=== PATIENT | female | born 1985 | race Hispanic/Latino ===

== ENCOUNTER 2019-07-14 08:59 | Emergency (ER) | payer SELFPAY ==
[~2019-07-14] VITALS: Ht 165.1 cm; Wt 81.6 kg
--- OUTSIDE RECORDS SUMMARY | 2019-07-14 09:02 | XMS REPORT ---
[facility] Address Unknown Phone Unavailable Care Team Providers Care Telephone Coin Box Collector Name Role Phone Unavailable Unavailable Payers Payer Name Policy Type Policy Number Effective Date Expiration Date Problems This patient has no known problems. Allergies, Adverse Reactions, Alerts Allergy Name Allergy Type Status Severity Reaction(s) Onset Date Inactive Date Treating Clinician Comments No Known Allergies DA Active U 2019-01-05 00:00:00 No Known Allergies DA Active U 2013-08-28 00:00:00 Medications This patient has no known medications. Results Test Description Test Time Test Comments Text Results Atomic Results Result Comments - US ABDOMEN LTD 2019-01-05 09:55:00 Name: BECCA QUESADA [facility] : 1985 Age/S: 33 / F Aravind [facility] Unit #: [id number] Loc: [place] [address] Phys: Roya Vu NP Acct: [id number] Dis Date: Status: REG ER PHONE #: [phone] Exam Date: 01/05/2019927 FAX #: [phone] Reason: RUQ AND R FLANK PAIN EXAMS: CPT CODE: [id number] US ABDOMEN LTD [id number] REASON FOR EXAM: RUQ AND R FLANK PAIN EXAM ORDER DATE: 01/05/2019 8:52 AM Attending MMarvin: Roya Vu NP PROCEDURE: - US ABDOMEN LTD Technique: Grayscale and color Doppler images of the right-upper quadrant of the abdomen. Comparison: CT abdomen and pelvis November 2012 FINDINGS: Aorta and IVC: Patent and grossly normal in caliber. Liver: Size: 15.6 cm craniocaudally Parenchyma and contour: Hyperechoic nodule in the inferior margin of the right lobe of the liver measuring 1.8 x 1.5 x 1.6 cm in size Cysts and/or masses: None. Intrahepatic bile ducts: No intrahepatic biliary ductal dilation Common bile duct: 4.3 mm in diameter. No echogenic filling defects in visualized duct. Gallbladder: Stones/sludge: No intraluminal stones or sludge. Wall: 2.7 mm in thickness. No discontinuity. No polyps. No pericholecystic fluid. No hyperemia. Sonographic Saunders's sign: Negative Portal vein: Portal vein caliber is within normal limits. Portal vein is patent with hepatopetal flow. Pancreas: Incompletely visualized. However the visualized portions are grossly within normal limits. Right kidney: parenchyma echogenicity: Normal echogenicity size: 11.0 x 4.8 x 5.0 cm stones: 6 mm stone in the inferior pole PAGE 1 Signed Report (CONTINUED) Name: BECCA QUESADA [facility] : 1985 Age/S: 33 / F [address] [facility] Unit #: [id number] Loc: [place] [address] Phys: Roya Vu NP Acct: [id number] Dis Date: Status: REG ER PHONE #: [phone] Exam Date: 01/05/2019927 FAX #: [phone] Reason: RUQ AND R FLANK PAIN EXAMS: CPT CODE: [id number] ABDOMEN [facility] [address] <Continued> cysts/masses: none hydronephrosis: none Ascites/pleural effusions: None IMPRESSION: Nonobstructing right-sided renal stone. Hyperechoic hepatic lesion in the right lobe. This can be further evaluated with a nonemergent contrast-enhanced cross-sectional study of the liver suggest CT or MRI. at 0955 Reported and signed by: Dm Mcpherson MD CC: Kevin Conrad MD; Rachell Mclaughlin MD; Roya Vu NP Technologist: ALTHEA ALOCCER Trnidb Date/Time: 01/05/2019 (0955) [email or web address] Orig Print D/T: S: 01/05/2019 (2445) Probe: PAGE 2 Signed Report URINALYSIS COMPLETE 2019-01-05 08:47:00 UA COLOR (test code=COLU) YELLOW YELLOW UA APPEARANCE (test code=APPU) Cloudy CLEAR UA GLUCOSE DIPSTICK (test code=DGLUU) NEGATIVE mg/dL NEGATIVE UA BILIRUBIN DIPSTICK (test code=BILU) NEGATIVE mg/dL NEGATIVE UA KETONE DIPSTICK (test code=KETU) NEGATIVE mg/dL NEGATIVE UA SPECIFIC GRAVITY (test code=SGU) 1.027 1.001-1.035 UA BLOOD DIPSTICK (test code=JARVIS) Negative mg/dL NEGATIVE UA PH DIPSTICK (test code=WILFRIDO) 7.0 5.0-8.0 UA PROTEIN DIPSTICK (test code=PROU) 20 (Trace) mg/dL NEGATIVE UA UROBILINIOGEN DIPSTICK (test code=URO) Normal mg/dL NEGATIVE UA NITRITE DIPSTICK (test code=RADHA) NEGATIVE NEGATIVE UA LEUKOCYTE ESTERASE W REFLEX (test code=LEUUR) NEGATIVE Rekha/uL NEGATIVE UA WBC (test code=WBCU) 6-10 per HPF 0-5 UA RBC (test code=RBCU) 0-2 #/HPF 0-5 UA EPITHELIAL CELLS (test code=EPIU) MOD per HPF FEW UA BACTERIA (test code=BACU) FEW #/HPF NONE UA RENAL CELLS (test code=JIM) 0-2 #/HPF 0-5 UA MUCUS (test code=MUCU) FEW #/LPF FEW UA AMORPHOUS SEDIMENT (test code=AMORU) FEW #/LPF NONE Urine Source? Clean CatchBASIC METABOLIC [id number] 08:47:00* Test Item Value Reference Range Comments SODIUM (test code=NA) 141 mmol/L 136-145 POTASSIUM (test code=K) 3.8 mmol/L 3.5-5.1 CHLORIDE (test code=CL) 107.0 mmol/L 98-107 CARBON DIOXIDE (test code=CO2) 27.0 mmol/L 21-32 ANION GAP (test code=GAP) 10.8 10-20 GLUCOSE (test code=GLU) 102 mg/dL 74-106 BLOOD UREA NITROGEN (test code=BUN) 12 mg/dL 7-18 GLOMERULAR FILTRATION RATE (test code=GFR) > 60 mL/min >=60 Estimated GFR by using Modified MDRD formula.Chronic kidney disease is defined as either kidney damageor GFR <60 mL/min/1.73 m2 for >3 months. CREATININE (test code=CREAT) 0.90 mg/dL 0.55-1.02 Note change in reference range due to change in reagent. BUN/CREATININE RATIO (test code=BUN/CREA) 13.0 10-20 CALCIUM (test code=CA) 9.2 mg/dL 8.5-10.1 HEPATIC FUNCTION [id number] 08:47:00* Test Item Value Reference Range Comments TOTAL PROTEIN (test code=PROT) 7.6 gram/dL 6.4-8.2 ALBUMIN (test code=ALB) 3.9 g/dL 3.4-5.0 GLOBULIN (test code=GLOB) 3.7 gram/dL 2.7-4.2 ALBUMIN/GLOBULIN RATIO (test code=A/G) 1.1 0.75-1.50 BILIRUBIN TOTAL (test code=BILT) 0.50 mg/dL 0.0-1.0 BILIRUBIN DIRECT (test code=BILD) 0.13 mg/dL 0.0-0.20 SGOT/AST (test code=AST) 11 IUnit/L 15-37 SGPT/ALT (test code=ALT) 17 IUnit/L 12-78 ALKALINE PHOSPHATASE TOTAL (test code=ALKP) 123 IUnit/L 45-117 Note change in reference range due to change in reagent. [id number] 08:47:00* Test Item Value Reference Range Comments LIPASE (test code=LIP) 96 U/L 73.0-393.0 HCG SERUM [id number] 08:47:00* Test Item Value Reference Range Comments HCG SERUM QUAL (test code=HCGQL) NEGATIVE NEGATIVE This HCGQL test is NOT applicable for MALE patients.Check with nurse about probable order error.If Tumor Marker Test needed, nurse should order test "HCGTU"(Test #550.50169) BASIC METABOLIC [id number] 08:38:00* Test Item Value Reference Range Comments SODIUM (test code=NA) 141 mmol/L 136-145 POTASSIUM (test code=K) 3.8 mmol/L 3.5-5.1 CHLORIDE (test code=CL) 107.0 mmol/L 98-107 CARBON DIOXIDE (test code=CO2) mmol/L 21-32 ANION GAP (test code=GAP) 10-20 GLUCOSE (test code=GLU) mg/dL 74-106 BLOOD UREA NITROGEN (test code=BUN) mg/dL 7-18 GLOMERULAR FILTRATION RATE (test code=GFR) mL/min >=60 CREATININE (test code=CREAT) mg/dL 0.55-1.02 BUN/CREATININE RATIO (test code=BUN/CREA) 10-20 CALCIUM (test code=CA) mg/dL 8.5-10.1 HEPATIC FUNCTION [id number] 08:38:00* Test Item Value Reference Range Comments TOTAL PROTEIN (test code=PROT) gram/dL 6.4-8.2 ALBUMIN (test code=ALB) g/dL 3.4-5.0 GLOBULIN (test code=GLOB) gram/dL 2.7-4.2 ALBUMIN/GLOBULIN RATIO (test code=A/G) 0.75-1.50 BILIRUBIN TOTAL (test code=BILT) mg/dL 0.0-1.0 BILIRUBIN DIRECT (test code=BILD) mg/dL 0.0-0.20 SGOT/AST (test code=AST) IUnit/L 15-37 SGPT/ALT (test code=ALT) IUnit/L 12-78 ALKALINE PHOSPHATASE TOTAL (test code=ALKP) IUnit/L 45-117 [id number] 08:38:00* Test Item Value Reference Range Comments LIPASE (test code=LIP) U/L 73.0-393.0 HCG SERUM [id number] 08:38:00* Test Item Value Reference Range Comments HCG SERUM QUAL (test code=HCGQL) NEGATIVE NEGATIVE This HCGQL test is NOT applicable for MALE patients.Check with nurse about probable order error.If Tumor Marker Test needed, nurse should order test "HCGTU"(Test #550.55435) BASIC METABOLIC [id number] 08:37:00* Test Item Value Reference Range Comments SODIUM (test code=NA) mmol/L 136-145 POTASSIUM (test code=K) mmol/L 3.5-5.1 CHLORIDE (test code=CL) mmol/L 98-107 CARBON DIOXIDE (test code=CO2) mmol/L 21-32 ANION GAP (test code=GAP) 10-20 GLUCOSE (test code=GLU) mg/dL 74-106 BLOOD UREA NITROGEN (test code=BUN) mg/dL 7-18 GLOMERULAR FILTRATION RATE (test code=GFR) mL/min >=60 CREATININE (test code=CREAT) mg/dL 0.55-1.02 BUN/CREATININE RATIO (test code=BUN/CREA) 10-20 CALCIUM (test code=CA) mg/dL 8.5-10.1 HEPATIC FUNCTION [id number] 08:37:00* Test Item Value Reference Range Comments TOTAL PROTEIN (test code=PROT) gram/dL 6.4-8.2 ALBUMIN (test code=ALB) g/dL 3.4-5.0 GLOBULIN (test code=GLOB) gram/dL 2.7-4.2 ALBUMIN/GLOBULIN RATIO (test code=A/G) 0.75-1.50 BILIRUBIN TOTAL (test code=BILT) mg/dL 0.0-1.0 BILIRUBIN DIRECT (test code=BILD) mg/dL 0.0-0.20 SGOT/AST (test code=AST) IUnit/L 15-37 SGPT/ALT (test code=ALT) IUnit/L 12-78 ALKALINE PHOSPHATASE TOTAL (test code=ALKP) IUnit/L 45-117 [id number] 08:37:00* Test Item Value Reference Range Comments LIPASE (test code=LIP) U/L 73.0-393.0 HCG SERUM [id number] 08:37:00* Test Item Value Reference Range Comments HCG SERUM QUAL (test code=HCGQL) NEGATIVE NEGATIVE This HCGQL test is NOT applicable for MALE patients.Check with nurse about probable order error.If Tumor Marker Test needed, nurse should order test "HCGTU"(Test #550.07376) CBC W/O [id number] 08:30:00* Test Item Value Reference Range Comments WHITE BLOOD CELL (test code=WBC) 17.3 K/mm3 4.5-12.5 RED BLOOD CELL (test code=RBC) 4.78 mill/mm3 3.7-5.2 HEMOGLOBIN (test code=HGB) 13.9 gram/dL 11.5-15.5 HEMATOCRIT (test code=HCT) 41.8 % 36.0-46.0 MEAN CELL VOLUME (test code=MCV) 87.4 fL 80-98 MEAN CELL HGB (test code=MCH) 29.1 picogram 27.0-33.0 MEAN CELL HGB CONCETRATION (test code=MCHC) 33.3 gram/dL 33.0-36.0 RED CELL DISTRIBUTION WIDTH (test code=RDW) 14.3 % 11.6-16.2 PLATELET COUNT (test code=PLT) 268 K/mm3 150-450 MEAN PLATELET VOLUME (test code=MPV) 11.6 fL 6.7-11.0 CBC W/O [id number] 08:24:00* Test Item Value Reference Range Comments WHITE BLOOD CELL (test code=WBC) K/mm3 4.5-12.5 RED BLOOD CELL (test code=RBC) mill/mm3 3.7-5.2 HEMOGLOBIN (test code=HGB) 13.9 gram/dL 11.5-15.5 HEMATOCRIT (test code=HCT) 41.8 % 36.0-46.0 MEAN CELL VOLUME (test code=MCV) fL 80-98 MEAN CELL HGB (test code=MCH) picogram 27.0-33.0 MEAN CELL HGB CONCETRATION (test code=MCHC) gram/dL 33.0-36.0 RED CELL DISTRIBUTION WIDTH (test code=RDW) % 11.6-16.2 PLATELET COUNT (test code=PLT) K/mm3 150-450 MEAN PLATELET VOLUME (test code=MPV) fL 6.7-11.0
[2019-07-14 09:46] LABS: STREPTOCOCCUS GRP A ANTIGEN NEGATIVE (NEGATIVE)
[2019-07-14 09:54] LABS: INFLUENZAE A&B ANTIGEN (RAPID) NEGATIVE (NEGATIVE)
== END 2019-07-14 10:07 | disposition home or self-care (01) ==
LOC: ER 08:59
DX: R50.9 Fever, unspecified (principal); R05 Cough; J02.9 Acute pharyngitis, unspecified
CPT/HCPCS: 83518; 87070; 87400; 99283

== ENCOUNTER 2019-12-26 04:24 | Observation (INO) | payer OTHER ==
[~2019-12-26] VITALS: Ht 165.1 cm; Wt 85.7 kg
[2019-12-26] MEDS ORDERED: KETOROLAC TROMETHAMINE 30 MG/ML VIAL IV STA (04:31)
[2019-12-26] MEDS ORDERED: ONDANSETRON HCL INJ 2MG/ML 2ML 2 MG/ML VIAL IV STA (04:31)
--- NOTE | 2019-12-26 04:31 | Emergency Department Note ---
History of Present Illnes History of Present Illness History of Present Illness This is a 34 year old female with R flank pain to RLQ since yesterday . Onset (how long ago): day(s) Radiation: Reports abdomen, Reports flank (R) Severity: moderate Onset quality: sudden Duration (how long): day(s) Timing of current episode: constant Progression: worsening Chronicity: new Context: Reports recent illness Relieving factors: none Associated symptoms: Reports fever/chills, Reports nausea/vomiting Treatments prior to arrival: none Past Medical/Family History Physician Review I have reviewed the patient's past medical and family history. Any updates have been documented here. Past Medical History Recent Fever: No Clinical Suspicion of Infectio: No New/Unexplained Change in Ment: No Past Medical History: None, Kidney Stones Past Surgical History: Other Surgery: kidney surgery for stones Social History Smoking Cessation: Current every day smoker Counseling Performed: Yes Alcohol Use: None Any Illegal Drug Use: Yes (Marijuana) Other Last Tetanus: unknown Review of Systems Review of Systems Constitutional: Reports chills EENTM: Reports no symptoms Cardiovascular: Reports no symptoms Respiratory: Reports no symptoms Gastrointestinal: Reports nausea Genitourinary: Reports no symptoms Musculoskeletal: Reports no symptoms Integumentary: Reports no symptoms Neurological: Reports no symptoms Psychological: Reports no symptoms Endocrine: Reports no symptoms Hematological/Lymphatic: Reports no symptoms Physical Exam Related Data Allergies: Coded Allergies: No Known Allergies (Unverified , 07/14/19) Vital signs reviewed: Yes Physical Exam CONSTITUTIONAL Constitutional: Present well-developed, Present well-nourished HENT HENT: Present normocephalic, Present atraumatic, Present oropharynx clear/moist, Present nose normal HENT L/R: Present left ext ear normal, Present right ext ear normal EYES Eyes: Reports PERRL, Reports conjunctivae normal NECK Neck: Present ROM normal PULMONARY Pulmonary: Present effort normal, Present breath sounds normal CARDIOVASCULAR Cardiovascular: Present regular rhythm, Present heart sounds normal, Present capillary refill normal, Present normal rate GASTROINTESTINAL Abdominal: Present soft, Present bowel sounds normal, Present tender (RLQ) GENITOURINARY Genitourinary: Present exam deferred SKIN Skin: Present warm, Present dry MUSCULOSKELETAL Musculoskeletal: Present ROM normal NEUROLOGICAL Neurological: Present alert, Present oriented x 3, Present no gross motor or sensory deficits PSYCHOLOGICAL Psychological: Present mood/affect normal, Present judgement normal Results Laboratory Lab results reviewed: Yes Laboratory comments markedly elevated WBC Imaging Imaging results reviewed: Yes Impressions [place] [id number] [place] [address] Patient Name: BECCA QUESADA MR #: [id number] : 1985 Age/Sex: 34/F Req #: [id number] [facility] Physician: REID BUTLER MD Ordered by: JUAN STEPHEN DO Report #: [id number] Location: [facility] Room/Bed: [place] [address] Procedure: [id number] CT/CT ABDOMEN/PELVIS W Exam Date: 12/26/19 Exam Time: 514 REPORT STATUS: Signed EXAM: CT Abdomen and Pelvis WITH contrast INDICATION: ^RLQ pain ^[id number] ^514 COMPARISON: None. TECHNIQUE: Abdomen and pelvis were scanned utilizing a multidetector helical scanner from the lung base to the pubic symphysis after administration of IV contrast. Coronal and sagittal reformations were obtained. Dose modulation, iterative reconstruction, and/or weight based adjustment of the mA/kV was utilized to reduce the radiation dose to as low as reasonably achievable. Routine protocol was performed. Scan was performed when during portal venous phase. IV CONTRAST: 100 mL of Isovue-370 ORAL CONTRAST: None COMPLICATIONS: None RADIATION DOSE: Total DLP: 598.67 mGy*cm Estimated effective dose: (DLP x 0.015 x size factor) mSv CTDIvol has been reviewed. It is below the limits set by the Radiation Protocol Committee (RPC). FINDINGS: LINES and TUBES: None. LOWER THORAX: Unremarkable HEPATOBILIARY: 1.9 cm hypodensity adjacent to the falciform ligament, could represent fat deposition versus a cyst. No biliary ductal dilation. GALLBLADDER: No radio-opaque stones or sludge. No wall thickening. SPLEEN: No splenomegaly. PANCREAS: No focal masses or ductal dilatation. ADRENALS: No adrenal nodules KIDNEYS/URETERS: Kidneys enhance symmetrically. Multifocal bilateral cortical scarring, left greater right. Focal area of right inferior pole cortical hypoenhancement with adjacent mild fat stranding (series 2, image 41). No hydronephrosis. No renal mass. No stones. GI TRACT: No abnormal distention, wall thickening, or evidence of bowel obstruction. Distended appendix up to 1.5 cm with mild surrounding fat stranding. PELVIC ORGANS/BLADDER: Bladder is under distended, demonstrating wall thickening. Vaginal tampon in place. LYMPH NODES: No lymphadenopathy. VESSELS: Unremarkable. PERITONEUM / RETROPERITONEUM: No free air. Small amount of complex pelvic free fluid. BONES: Unremarkable. SOFT TISSUES: Unremarkable. IMPRESSION: 1. Acute appendicitis. No evidence of perforation or abscess formation. 2. Small focal area of right renal cortical hypoenhancement, could represent mild pyelonephritis in the appropriate clinical context. 3. Significant multifocal left renal cortical scarring Dr. Dyer was notified at 6:10 AM, on 12/26/2019. Signed by: Dr. Cornelio Dye MD on 12/26/2019 6:12 AM Dictated By: CORNELIO DYE MD 1 Transcribed By: JAG on 12/26/19611 COPY TO: JUAN STEPHEN DO~ Assessment & Plan Medical Decision Making MDM Diff Dx : ovarian cyst, appendicitis, kidney stone, hernia Assessment & Plan Final Impression: (1) Pyelonephritis (2) Appendicitis Depart Disposition: ADMITTED Home Meds Reported Medications Acetaminophen/Codeine* (TYLENOL # 3*) 1 Ea Tab, MG PO Q4HR, #30 12/27/19 Ibuprofen (IBUPROFEN) 400 Mg Tablet, 800 MG PO Q6H PRN for MODERATE PAIN (4-6), TAB 12/26/19 Naproxen (NAPROXEN) 250 Mg Tablet, 250 MG PO Q4H PRN for Mild Pain (1-3) or Fever>100.8, TAB 12/26/19 JUAN STEPHEN DO Dec 26, 2019 04:31
--- OUTSIDE RECORDS SUMMARY | 2019-12-26 04:35 | XMS REPORT | Continuity of Care Document ---
Author Author [facility] t Organization [facility] Address [address] [place] [address] Phone Unavailable Care Team Providers Care Sld Teacher Name Role Phone NO, PCP PCP Unavailable Payers Payer Name Policy Type Policy Number Effective Date Expiration Date S ource Problems This patient has no known problems. Allergies, Adverse Reactions, Alerts Allergy Name Allergy Type Status Severity Reaction(s) Onset Date Inacti ve Date Treating Clinician Comments Source No Known Allergies DA Active U 2019-01-05 00:00:00 [facility] No Known Allergies DA Active U 2013-08-28 00:00:00 [facility] Medications This patient has no known medications. Procedures This patient has no known procedures. Encounters Start Date/Time End Date/Time [facility]counter [facility] ID Source 2019-07-14 08:59:00 2019-07-14 10:07:00 Departed Emergency Room [facility] [id number] [facility] Results Test Description Test Time Test Comments Results Result Comments Source Influenza Virus Types A,B Antigen 2019-07-14 09:54:00 Test Item Influenza Virus Types A,B Antigen (test code = 96376-2) [facility] [id number] 09:46:00* Test Item Value Reference Range Interpretation Comments Group A Streptococcus Screen (test code = 60815-0) NEGATIVE NEG ATIVE [facility]- US ABDOMEN [id number] 09:55:00 Name: MICAH QUESADAIE [facility] : 1985 Age/S: 33 / F [address] Unit #: [id number] Loc: GORAN Weber [address] Phys: Lee Vu [employer] Acct: [id number] Di s Date: Status: REG ER PHONE #: Exam Date: 01/05/2019927 FAX #: [phone] Reason: RUQ AND R FLANK PAIN EXAMS: CPT CODE: [id number] US ABDOMEN LTD 44263 REASON FOR EXAM: RUQ AND R FLANK PAIN EXAM ORDER DATE: 01/05/2019 8:52 AM Attending Timmy: Roya Vu NP PROCEDURE: - US AB DOMEN LTD Technique: Grayscale and color Doppler images of the rig ht-upper quadrant of the abdomen. Comparison: CT abdomen and pelvis November 2012 FINDINGS: Aorta and IVC: Patent and grossly normal in caliber. Liver: Size: 15.6 cm cranio caudally Parenchyma and contour: Hyperechoic nodule in the inferior margin of the right lobe of the liver measuring 1.8 x 1.5 x 1.6 cm in size Cysts and/or masses: None. Intrahepatic bile ducts: No intrahepat ic biliary ductal dilation Common bile duct: 4.3 mm in diameter. No echogenic filling defects in visualized duct. Gallbladder : Stones/sludge: No intraluminal stones or sludge. Wall: 2.7 mm in thickness. No discontinuity. No polyps. No pericholecystic fluid. No h yperemia. Sonographic Saunders's sign: Negative Portal vein: P ortal vein caliber is within normal limits. Portal vein is patent with he patopetal flow. Pancreas: Incompletely visualized. However the vis ualized portions are grossly within normal limits. Right kid kennedy: parenchyma echogenicity: Normal echogenicity size: 11.0 x 4.8 x 5.0 cm stones: 6 mm stone in the inferior pole PAGE 1 Signed Report (CONTINUED) Name: BECCA QUESADA [facility] : 1985 Age/S: 33 / F [address] Unit #: [id number] Loc: GORAN Weber [address] Phys: Roya Vu NP Acct: [id number] Dis Date: Status: REG ER PHONE #: [phone] Exam Date: 01/05/2019927 FAX #: [phone] Reason: RUQ AND R FLANK PAIN EXAMS: CPT CODE: [id number] US ABDOMEN LTD 54153 <Continued> cysts/masses: none hydronephrosis: none Ascites/pleural effusions: None IMPRESSION: Nonobstructing right-sided renal stone. Hyperechoic hepatic lesion in the right lobe. This can be further evaluated with a nonemergent contrast-enhanced cross-sectional study of the liver suggest CT or MRI. at 0955 Reported and signed by: Dm Mcpherson MD CC: Kevin Conrad MD; Rachell Mclaughlin MD; Roya Vu NP Technologist: ALTHEA ALCOCER Trnscb Date/Time: 01/05/2019 (0955) [email or web address] Orig Print D/T: S: 01/05/2019 (0958) Probe: PAGE 2 Signed Report URINALYSIS [id number] 08:47:00* Test Item Value Reference Range Interpretation Comments UA COLOR (test code = COLU) YELLOW YELLOW UA APPEARANCE (test code = APPU) Cloudy CLEAR A UA GLUCOSE DIPSTICK (test code = DGLUU) NEGATIVE mg/dL NEGATIVE UA BILIRUBIN DIPSTICK (test code = BILU) NEGATIVE mg/dL NEGATIVE UA KETONE DIPSTICK (test code = KETU) NEGATIVE mg/dL NEGATIVE UA SPECIFIC GRAVITY (test code = SGU) 1.027 1.001-1.035 UA BLOOD DIPSTICK (test code = JARVIS) Negative mg/dL NEGATIVE UA PH DIPSTICK (test code = WILFRIDO) 7.0 5.0-8.0 UA PROTEIN DIPSTICK (test code = PROU) 20 (Trace) mg/dL NEGATIVE A UA UROBILINIOGEN DIPSTICK (test code = URO) Normal mg/dL NEGATIVE UA NITRITE DIPSTICK (test code = RADHA) NEGATIVE NEGATIVE UA LEUKOCYTE ESTERASE W REFLEX (test code = LEUUR) NEGATIVE Rekha/uL NEGATIVE UA WBC (test code = WBCU) 6-10 per HPF 0-5 A UA RBC (test code = RBCU) 0-2 #/HPF 0-5 UA EPITHELIAL CELLS (test code = EPIU) MOD per HPF FEW UA BACTERIA (test code = BACU) FEW #/HPF NONE A UA RENAL CELLS (test code = JIM) 0-2 #/HPF 0-5 UA MUCUS (test code = MUCU) FEW #/LPF FEW UA AMORPHOUS SEDIMENT (test code = AMORU) FEW #/LPF NONE Urine Source? Clean CatchBASIC METABOLIC [id number] 08:47:00* Test Item Value Reference Range Interpretation Comments SODIUM (test code = NA) 141 mmol/L 136-145 N POTASSIUM (test code = K) 3.8 mmol/L 3.5-5.1 N CHLORIDE (test code = CL) 107.0 mmol/L 98-107 N CARBON DIOXIDE (test code = CO2) 27.0 mmol/L 21-32 N ANION GAP (test code = GAP) 10.8 10-20 N GLUCOSE (test code = GLU) 102 mg/dL 74-106 N BLOOD UREA NITROGEN (test code = BUN) 12 mg/dL 7-18 N GLOMERULAR FILTRATION RATE (test code = GFR) > 60 mL/min >=60 Estimated GFR by using Modified MDRD formula.Chronic kidney disease is defined as either kidney damageor GFR <60 mL/min/1.73 m2 for >3 months. CREATININE (test code = CREAT) 0.90 mg/dL 0.55-1.02 N Note change in reference range due to change in reagent. BUN/CREATININE RATIO (test code = BUN/CREA) 13.0 10-20 N CALCIUM (test code = CA) 9.2 mg/dL 8.5-10.1 N HEPATIC FUNCTION [id number] 08:47:00* Test Item Value Reference Range Interpretation Comments TOTAL PROTEIN (test code = PROT) 7.6 gram/dL 6.4-8.2 N ALBUMIN (test code = ALB) 3.9 g/dL 3.4-5.0 N GLOBULIN (test code = GLOB) 3.7 gram/dL 2.7-4.2 N ALBUMIN/GLOBULIN RATIO (test code = A/G) 1.1 0.75-1.50 N BILIRUBIN TOTAL (test code = BILT) 0.50 mg/dL 0.0-1.0 N BILIRUBIN DIRECT (test code = BILD) 0.13 mg/dL 0.0-0.20 N SGOT/AST (test code = AST) 11 IUnit/L 15-37 L SGPT/ALT (test code = ALT) 17 IUnit/L 12-78 N ALKALINE PHOSPHATASE TOTAL (test code = ALKP) 123 IUnit/L 45-117 H Note change in reference range due to change in reagent. [id number] 08:47:00* Test Item Value Reference Range Interpretation Comments LIPASE (test code = LIP) 96 U/L 73.0-393.0 N HCG SERUM [id number] 08:47:00* Test Item Value Reference Range Interpretation Comments HCG SERUM QUAL (test code = HCGQL) NEGATIVE NEGATIVE This HCGQL test is NOT applicable for MALE patients.Check with nurse about probable order error.If Tumor Marker Test needed, nurse should order test "HCGTU"(Test #550.99895) BASIC METABOLIC [id number] 08:38:00* Test Item Value Reference Range Interpretation Comments SODIUM (test code = NA) 141 mmol/L 136-145 N POTASSIUM (test code = K) 3.8 mmol/L 3.5-5.1 N CHLORIDE (test code = CL) 107.0 mmol/L 98-107 N CARBON DIOXIDE (test code = CO2) mmol/L 21-32 ANION GAP (test code = GAP) 10-20 GLUCOSE (test code = GLU) mg/dL 74-106 BLOOD UREA NITROGEN (test code = BUN) mg/dL 7-18 GLOMERULAR FILTRATION RATE (test code = GFR) mL/min >=60 CREATININE (test code = CREAT) mg/dL 0.55-1.02 BUN/CREATININE RATIO (test code = BUN/CREA) 10-20 CALCIUM (test code = CA) mg/dL 8.5-10.1 HEPATIC FUNCTION [id number] 08:38:00* Test Item Value Reference Range Interpretation Comments TOTAL PROTEIN (test code = PROT) gram/dL 6.4-8.2 ALBUMIN (test code = ALB) g/dL 3.4-5.0 GLOBULIN (test code = GLOB) gram/dL 2.7-4.2 ALBUMIN/GLOBULIN RATIO (test code = A/G) 0.75-1.50 BILIRUBIN TOTAL (test code = BILT) mg/dL 0.0-1.0 BILIRUBIN DIRECT (test code = BILD) mg/dL 0.0-0.20 SGOT/AST (test code = AST) IUnit/L 15-37 SGPT/ALT (test code = ALT) IUnit/L 12-78 ALKALINE PHOSPHATASE TOTAL (test code = ALKP) IUnit/L 45-117 [id number] 08:38:00* Test Item Value Reference Range Interpretation Comments LIPASE (test code = LIP) U/L 73.0-393.0 HCG SERUM [id number] 08:38:00* Test Item Value Reference Range Interpretation Comments HCG SERUM QUAL (test code = HCGQL) NEGATIVE NEGATIVE This HCGQL test is NOT applicable for MALE patients.Check with nurse about probable order error.If Tumor Marker Test needed, nurse should order test "HCGTU"(Test #550.59230) BASIC METABOLIC [id number] 08:37:00* Test Item Value Reference Range Interpretation Comments SODIUM (test code = NA) mmol/L 136-145 POTASSIUM (test code = K) mmol/L 3.5-5.1 CHLORIDE (test code = CL) mmol/L 98-107 CARBON DIOXIDE (test code = CO2) mmol/L 21-32 ANION GAP (test code = GAP) 10-20 GLUCOSE (test code = GLU) mg/dL 74-106 BLOOD UREA NITROGEN (test code = BUN) mg/dL 7-18 GLOMERULAR FILTRATION RATE (test code = GFR) mL/min >=60 CREATININE (test code = CREAT) mg/dL 0.55-1.02 BUN/CREATININE RATIO (test code = BUN/CREA) 10-20 CALCIUM (test code = CA) mg/dL 8.5-10.1 HEPATIC FUNCTION [id number] 08:37:00* Test Item Value Reference Range Interpretation Comments TOTAL PROTEIN (test code = PROT) gram/dL 6.4-8.2 ALBUMIN (test code = ALB) g/dL 3.4-5.0 GLOBULIN (test code = GLOB) gram/dL 2.7-4.2 ALBUMIN/GLOBULIN RATIO (test code = A/G) 0.75-1.50 BILIRUBIN TOTAL (test code = BILT) mg/dL 0.0-1.0 BILIRUBIN DIRECT (test code = BILD) mg/dL 0.0-0.20 SGOT/AST (test code = AST) IUnit/L 15-37 SGPT/ALT (test code = ALT) IUnit/L 12-78 ALKALINE PHOSPHATASE TOTAL (test code = ALKP) IUnit/L 45-117 [id number] 08:37:00* Test Item Value Reference Range Interpretation Comments LIPASE (test code = LIP) U/L 73.0-393.0 HCG SERUM [id number] 08:37:00* Test Item Value Reference Range Interpretation Comments HCG SERUM QUAL (test code = HCGQL) NEGATIVE NEGATIVE This HCGQL test is NOT applicable for MALE patients.Check with nurse about probable order error.If Tumor Marker Test needed, nurse should order test "HCGTU"(Test #550.07636) CBC W/O [id number] 08:30:00* Test Item Value Reference Range Interpretation Comments WHITE BLOOD CELL (test code = WBC) 17.3 K/mm3 4.5-12.5 H RED BLOOD CELL (test code = RBC) 4.78 mill/mm3 3.7-5.2 N HEMOGLOBIN (test code = HGB) 13.9 gram/dL 11.5-15.5 N HEMATOCRIT (test code = HCT) 41.8 % 36.0-46.0 N MEAN CELL VOLUME (test code = MCV) 87.4 fL 80-98 N MEAN CELL HGB (test code = MCH) 29.1 picogram 27.0-33.0 N MEAN CELL HGB CONCETRATION (test code = MCHC) 33.3 gram/dL 33.0-36. 0 N RED CELL DISTRIBUTION WIDTH (test code = RDW) 14.3 % 11.6-16. 2 N PLATELET COUNT (test code = PLT) 268 K/mm3 150-450 N MEAN PLATELET VOLUME (test code = MPV) 11.6 fL 6.7-11.0 H CBC W/O [id number] 08:24:00* Test Item Value Reference Range Interpretation Comments WHITE BLOOD CELL (test code = WBC) K/mm3 4.5-12.5 RED BLOOD CELL (test code = RBC) mill/mm3 3.7-5.2 HEMOGLOBIN (test code = HGB) 13.9 gram/dL 11.5-15.5 N HEMATOCRIT (test code = HCT) 41.8 % 36.0-46.0 N MEAN CELL VOLUME (test code = MCV) fL 80-98 MEAN CELL HGB (test code = MCH) picogram 27.0-33.0 MEAN CELL HGB CONCETRATION (test code = MCHC) gram/dL 33.0-36. 0 RED CELL DISTRIBUTION WIDTH (test code = RDW) % 11.6-16. 2 PLATELET COUNT (test code = PLT) K/mm3 150-450 MEAN PLATELET VOLUME (test code = MPV) fL 6.7-11.0
[2019-12-26 04:43] LABS: BASOPHILS # (AUTO) 0.1 (0.0-0.1); BASOPHILS % 0.3 % (0.0-1.0); EOSINOPHILS # (AUTO) 0.2 (0.0-0.4); EOSINOPHILS % 0.9 % (0.0-6.0); HEMATOCRIT 40.7 % (34.2-44.1); HEMOGLOBIN 13.4 g/dL (12.0-16.0); LYMPHOCYTES # (AUTO) 3.4 (1.0-3.2); LYMPHOCYTES % 15.7 % (18.0-39.1); MEAN CORPUSCULAR HEMOGLOBIN 28.5 pg (28-32); MEAN CORPUSCULAR HGB CONC 32.9 g/dL (31-35); MEAN CORPUSCULAR VOLUME 86.6 fL (81-99); MONOCYTES # (AUTO) 1.4 (0.2-0.8); MONOCYTES % 6.3 % (4.4-11.3); NEUTROPHILS # (AUTO) 16.7 (2.1-6.9); NEUTROPHILS % 76.2 % (38.7-80.0); PLATELET COUNT 344 x10e3/uL (140-360); RED CELL DISTRIBUTION WIDTH 13.8 % (11.7-14.4)
[2019-12-26 04:45] LABS: BILIRUBIN,URINE NEGATIVE (NEGATIVE); CLARITY,URINE SL CLOUDY (CLEAR); COLOR,URINE YELLOW (YELLOW); KETONES,URINE NEGATIVE (NEGATIVE); LEUKOCYTE ESTERASE ,URINE SMALL (NEGATIVE); NITRITE,URINE POSITIVE (NEGATIVE); PREGNANCY TEST, URINE NEGATIVE (NEGATIVE); PROTEIN,URINE DIPSTICK TRACE (NEGATIVE); URINE UROBILINOGEN 0.2 mg/dL (0.2 - 1)
[2019-12-26] MEDS ORDERED: PIPERACILLIN/TAZO 4.5 GM 100 ML IV STA (04:48)
[2019-12-26] MEDS ORDERED: SODIUM CHLORIDE 0.9% 1000ML 1,000 ML IV STA (04:48)
[2019-12-26 04:51] LABS: AMORPHOUS SEDIMENT,URINE MODERATE (FEW); BACTERIA,URINE MODERATE /HPF; EPITHELIAL CELLS,URINE FEW /LPF
[2019-12-26] MEDS ORDERED: MORPHINE SULFATE INJ 4 MG/ML INJ 1ML IV STA ×2 (04:57→07:34)
[2019-12-26 05:03] LABS: ALANINE AMINOTRANSFERASE 13 IU/L (0-55); ALBUMIN 4.4 g/dL (3.5-5.0); ALBUMIN/GLOBULIN RATIO 1.4 (0.8-2.0); ALKALINE PHOSPHATASE 104 IU/L (40-150); ANION GAP 16.9 mmol/L (8-16); BLOOD UREA NITROGEN 10 mg/dL (7-26); BUN/CREATININE RATIO 11 (6-25); CALCIUM 9.1 mg/dL (8.4-10.2); CARBON DIOXIDE 21 mmol/L (22-29); CHLORIDE 106 mmol/L (98-107); CREATININE, SERUM 0.88 mg/dL (0.57-1.11); EST GLOMERULAR FILTRATION RATE > 60 ML/MIN (60-); GLUCOSE 102 mg/dL (74-118); POTASSIUM 3.9 mmol/L (3.5-5.1); SODIUM 140 mmol/L (136-145)
[2019-12-26] MEDS ORDERED: SODIUM CHLORIDE 0.9% 50ML 50 ML ONE (05:21)
[2019-12-26] MEDS ORDERED: IOPAMIDOL 370 MG/ML 200 ML INFUS..BTL INJ ONE (05:21)
[2019-12-26] MEDS ORDERED: ONDANSETRON HCL INJ 2MG/ML 2ML 2 MG/ML VIAL IV PRN ×2 (06:15→20:15)
[2019-12-26] MEDS ORDERED: MORPHINE SULFATE 2 MG/ML SYR 1ML IV PRN (06:15)
--- NOTE | 2019-12-26 06:15 | Diagnostic Imaging Report ---
EXAM: CT Abdomen and Pelvis WITH contrast INDICATION: ^RLQ pain ^20191226 ^0515 COMPARISON: None. TECHNIQUE: Abdomen and pelvis were scanned utilizing a multidetector helical scanner from the lung base to the pubic symphysis after administration of IV contrast. Coronal and sagittal reformations were obtained. Dose modulation, iterative reconstruction, and/or weight based adjustment of the mA/kV was utilized to reduce the radiation dose to as low as reasonably achievable. Routine protocol was performed. Scan was performed when during portal venous phase. IV CONTRAST: 100 mL of Isovue-370 ORAL CONTRAST: None COMPLICATIONS: None RADIATION DOSE: Total DLP: 598.67 mGy*cm Estimated effective dose: (DLP x 0.015 x size factor) mSv CTDIvol has been reviewed. It is below the limits set by the Radiation Protocol Committee (RPC). FINDINGS: LINES and TUBES: None. LOWER THORAX: Unremarkable HEPATOBILIARY: 1.9 cm hypodensity adjacent to the falciform ligament, could represent fat deposition versus a cyst. No biliary ductal dilation. GALLBLADDER: No radio-opaque stones or sludge. No wall thickening. SPLEEN: No splenomegaly. PANCREAS: No focal masses or ductal dilatation. ADRENALS: No adrenal nodules KIDNEYS/URETERS: Kidneys enhance symmetrically. Multifocal bilateral cortical scarring, left greater right. Focal area of right inferior pole cortical hypoenhancement with adjacent mild fat stranding (series 2, image 41). No hydronephrosis. No renal mass. No stones. GI TRACT: No abnormal distention, wall thickening, or evidence of bowel obstruction. Distended appendix up to 1.5 cm with mild surrounding fat stranding. PELVIC ORGANS/BLADDER: Bladder is under distended, demonstrating wall thickening. Vaginal tampon in place. LYMPH NODES: No lymphadenopathy. VESSELS: Unremarkable. PERITONEUM / RETROPERITONEUM: No free air. Small amount of complex pelvic free fluid. BONES: Unremarkable. SOFT TISSUES: Unremarkable. IMPRESSION: 1. Acute appendicitis. No evidence of perforation or abscess formation. 2. Small focal area of right renal cortical hypoenhancement, could represent mild pyelonephritis in the appropriate clinical context. 3. Significant multifocal left renal cortical scarring Dr. Dyer was notified at 6:10 AM, on 12/26/2019. Signed by: Dr. Cornelio Hicks MD on 12/26/2019 6:12 AM
--- OUTSIDE RECORDS SUMMARY | 2019-12-26 06:15 | XMS REPORT | Continuity of Care Document ---
Author Author [facility] t Organization [facility] Address [address] [place] [address] Phone Unavailable Care Team Providers Care Csw Name Role Phone NO, PCP PCP Unavailable Payers Payer Name Policy Type Policy Number Effective Date Expiration Date S ource Problems This patient has no known problems. Allergies, Adverse Reactions, Alerts Allergy Name Allergy Type Status Severity Reaction(s) Onset Date Inacti ve Date Treating Clinician Comments Source No Known Allergies DA Active U 2019-01-05 00:00:00 [facility] No Known Allergies DA Active U 2013-08-28 00:00:00 [facility] Medications This patient has no known medications. Procedures This patient has no known procedures. Encounters Start Date/Time End Date/Time Encounter Type [facility] En[facility] ID Source 2019-07-14 08:59:00 2019-07-14 10:07:00 Departed Emergency Room [facility] [id number] [facility] Results Test Description Test Time Test Comments Results Result Comments Source Influenza Virus Types A,B Antigen 2019-07-14 09:54:00 Test Item Influenza Virus Types A,B Antigen (test code = 69779-7) NEGATIVE [facility]IVE [facility] [id number] 09:46:00* Test Item Value Reference Range Interpretation Comments Group A Streptococcus Screen (test code = 66605-2) NEGATIVE NEG ATIVE [facility]- US ABDOMEN [id number] 09:55:00 Name: MICAH QUESADAIE [facility] : 1985 Age/S: 33 / F [address] Unit #: [id number] Loc: GORAN Weber [address] 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 Acct: [id number] Di s Date: Status: REG ER PHONE #: Exam Date: 01/05/2019927 FAX #: Reason: RUQ AND R FLANK PAIN EXAMS: CPT CODE: [id number] US ABDOMEN LTD 84530 REASON FOR EXAM: RUQ AND R FLANK [...] 1 Signed Report (CONTINUED) Name: BECCA QUESADA [facility] : 1985 Age/S: 33 / F [address] Unit #: [id number] Loc: GORAN Weber [address] Phys: Roya Vu NP Acct: [id number] Dis Date: Status: REG ER PHONE #: [phone] Exam Date: 01/05/2019927 FAX #: [phone] Reason: RUQ AND R FLANK PAIN EXAMS: CPT CODE: [id number] US ABDOMEN LTD 92867 <Continued> cysts/masses: none hydronephrosis: none Ascites/pleural effusions: [...] (0958) Probe: PAGE 2 Signed Report URINALYSIS [id number] 08:47:00* Test Item Value Reference Range Interpretation [...] #/LPF NONE Urine Source? Clean CatchBASIC METABOLIC [id number] 08:47:00* Test Item Value Reference Range Interpretation [...] CA) 9.2 mg/dL 8.5-10.1 N HEPATIC FUNCTION [id number] 08:47:00* Test Item Value Reference Range Interpretation [...] reference range due to change in reagent. [id number] 08:47:00* Test Item Value Reference Range Interpretation Comments LIPASE (test code = LIP) 96 U/L 73.0-393.0 N HCG SERUM [id number] 08:47:00* Test Item Value Reference Range Interpretation Comments HCG SERUM QUAL (test code = HCGQL) NEGATIVE NEGATIVE This HCGQL test is NOT applicable for MALE patients.Check with nurse about probable order error.If Tumor Marker Test needed, nurse should order test "HCGTU"(Test #550.57332) BASIC METABOLIC [id number] 08:38:00* Test Item Value Reference Range Interpretation [...] code = CA) mg/dL 8.5-10.1 HEPATIC FUNCTION [id number] 08:38:00* Test Item Value Reference Range Interpretation [...] TOTAL (test code = ALKP) IUnit/L 45-117 [id number] 08:38:00* Test Item Value Reference Range Interpretation Comments LIPASE (test code = LIP) U/L 73.0-393.0 HCG SERUM [id number] 08:38:00* Test Item Value Reference Range Interpretation Comments HCG SERUM QUAL (test code = HCGQL) NEGATIVE NEGATIVE This HCGQL test is NOT applicable for MALE patients.Check with nurse about probable order error.If Tumor Marker Test needed, nurse should order test "HCGTU"(Test #550.28167) BASIC METABOLIC [id number] 08:37:00* Test Item Value Reference Range Interpretation [...] code = CA) mg/dL 8.5-10.1 HEPATIC FUNCTION [id number] 08:37:00* Test Item Value Reference Range Interpretation [...] TOTAL (test code = ALKP) IUnit/L 45-117 [id number] 08:37:00* Test Item Value Reference Range Interpretation Comments LIPASE (test code = LIP) U/L 73.0-393.0 HCG SERUM [id number] 08:37:00* Test Item Value Reference Range Interpretation Comments HCG SERUM QUAL (test code = HCGQL) NEGATIVE NEGATIVE This HCGQL test is NOT applicable for MALE patients.Check with nurse about probable order error.If Tumor Marker Test needed, nurse should order test "HCGTU"(Test #550.56114) CBC W/O [id number] 08:30:00* Test Item Value Reference Range Interpretation [...] MPV) 11.6 fL 6.7-11.0 H CBC W/O [id number] 08:24:00* Test Item Value Reference Range Interpretation [...]
[2019-12-26] MEDS: SODIUM CHLORIDE 0.9% 1000ML 1,000 ML IV SCH ×3 (06:30→20:15)
--- NOTE | 2019-12-26 06:55 | NUR ---
Report to ABDIFATAH Layne.
[2019-12-26] MEDS: PIPER-TAZ 3.375 GM 50 ML IV SCH ×3 (11:25→23:45)
--- NOTE | 2019-12-26 11:37 | NUR ---
Received patient via stretcher from ER. AAOX4 to time, person, place, situation. Respirations even and unlabored. c/o RLQ abdominal pain 08/30. Oriented patient to room. Instructed to use call light for assistance. Voiced understanding.
[2019-12-26 12:11] VITALS: BP 103/72
[2019-12-26 12:15] VITALS: BP 103/72
[2019-12-26] MEDS ORDERED: NAPROXEN250 MG PO (12:16)
[2019-12-26] MEDS ORDERED: IBUPROFEN400 MG PO (12:16)
[2019-12-26] MEDS: MORPHINE SULFATE INJ 4 MG/ML INJ 1ML IV PRN ×2 (12:24→15:28)
[2019-12-26] MEDS ORDERED: ROCURONIUM BROMIDE 10 MG/ML 5ML VIAL IV ONE (14:14)
[2019-12-26] MEDS ORDERED: ONDANSETRON HCL INJ 2MG/ML 2ML 2 MG/ML VIAL ONE (14:14)
[2019-12-26] MEDS ORDERED: KETOROLAC TROMETHAMINE 30 MG/ML VIAL ONE (14:14)
[2019-12-26] MEDS ORDERED: DEXAMETHASONE SOD PHOS INJ 4 MG/ML VIAL ONE (14:14)
[2019-12-26] MEDS ORDERED: SEVOFLURANE INHAL SOLN 250 ML PEN BTL ONE (14:14)
[2019-12-26] MEDS ORDERED: GLYCOPYRROLATE INJ 0.2 MG/ML VIAL ONE (14:14)
[2019-12-26] MEDS ORDERED: LIDOCAINE HCL 2% LOCAL INJ 5 ML SDV VIAL INJ ONE (14:14)
[2019-12-26] MEDS ORDERED: NEOSTIGMINE 1 MG/ML 10ML VIAL ONE (14:14)
[2019-12-26] MEDS ORDERED: SUCCINYLCHOLINE CHLORIDE 20 MG/ML 10ML VIAL ONE (14:14)
[2019-12-26] MEDS ORDERED: PROPOFOL IV EMULSION 10 MG/ML 20 ML VIAL ONE (14:14)
[2019-12-26] MEDS ORDERED: MIDAZOLAM HCL 2 MG/2 ML VIAL ONE (14:53)
[2019-12-26] MEDS ORDERED: FENTANYL CITRATE/PF 100MCG/2 ML INJ ONE (14:53)
[2019-12-26] MEDS ORDERED: BUPIVACAINE HCL 0.5% INJ 30 ML VIAL INJ ONE (15:08)
[2019-12-26 17:17] VITALS: BP 108/87
--- NOTE | 2019-12-26 18:35 | NUR ---
Taken for procedure. No s/s of acute distress noted. 1700 ABX to be administered by OR.
--- NOTE | 2019-12-26 19:07 | NUR ---
Report given to oncoming nurse of patient's status.
[2019-12-26] MEDS ORDERED: ACETAMINOPHEN 1000 MG/100 ML 100 ML IV ONE (19:09)
--- NOTE | 2019-12-26 20:14 | History and Physical ---
REASON FOR ADMISSION: A 34-year-old female, who came in with abdominal pain. HISTORY OF PRESENTING ILLNESS: This is Ms. Roberts, who is a 34-year-old female with a history of kidney stone, was in usual state of health until last afternoon, the patient started with pain. She thought it was more of her usual kidney stone pain and tried to ease it down. The pain got worse. This morning, the patient was in intractable pain, came in and was found to have appendicitis and is admitted in the hospital for appendicitis and surgery is consulted. PAST SURGICAL HISTORY: History of C-sections x2, history of lithotripsies in the past, and also history of ureteral stents, which have been removed. ALLERGIES: NO DRUG ALLERGIES. SOCIAL HISTORY: History of ETOH occasionally and history of smoking. No IV drug abuse. REVIEW OF SYSTEMS: Negative for chest pain. No shortness of breath. No nausea. No vomiting. No diarrhea. No constipation. No rectal bleeding. No hematochezia. No hematemesis. Positive for abdominal pain. MEDICATIONS: She just takes naproxen and ibuprofen as needed. PHYSICAL EXAMINATION: VITAL SIGNS: Temperature is 97.9, tachycardic, respiration of 20, blood pressure is 108/87, and pulse oximetry of 98%. HEENT: Normocephalic and atraumatic. No icterus present. CVS: S1 and S2. Normal rate and rhythm. ABDOMEN: Tender in the right lower quadrant abdomen. EXTREMITIES: No clubbing. No cyanosis. No edema. LABORATORY VALUES: White count is 21,000, hemoglobin of 13.4, and hematocrit of 40.7. Chemistries; sodium 140, potassium of 3.9, BUN of 10, and creatinine 0.8. Serology; Coronavirus is pending. MICROBIOLOGY: Blood cultures are pending. IMAGING DATA: Abdominal CT shows acute appendicitis. No perforation. Small focal area of the right renal cortical hypoenhancement, could represent mild pyelonephritis. Significant multifocal left cortical scarring. ASSESSMENT: This is Ms. Anali Roberts with: 1. Acute appendicitis. Plan for taken out to surgery right now. 2. History of kidney cyst. 3. History of smoking. 4. History of leukocytosis. Currently, the patient is on Zosyn q.6 hours. We will continue with this. Dr. Maya will take her for surgery. Continue with fluid resuscitation. Morphine sulfate has been given to the patient for pain control. Further recommendation per clinical course. The patient can be discharged tomorrow if all is well. MD RAQUEL Marroquin/MODL /[id number]
[2019-12-26] MEDS ORDERED: ACETAMINOPHEN 325 MG TAB PO PRN (20:15)
[2019-12-26] MEDS ORDERED: HYDROMORPHONE 1MG/1ML INJ ONE (20:31)
[2019-12-26 21:44] VITALS: BP 96/69
[2019-12-26 22:36] VITALS: BP 96/69
[2019-12-26] MEDS: HYDROCODONE/APAP 5MG-325MG TAB PO PRN (22:55)
--- NOTE | 2019-12-26 23:14 | Operative Report ---
DATE OF PROCEDURE: 12/26/2019 SURGEON: Keenan Maya MD PREOPERATIVE DIAGNOSIS: Acute appendicitis. POSTOPERATIVE DIAGNOSIS: Acute appendicitis. PROCEDURES: Diagnostic laparoscopy and laparoscopic appendectomy. INTERNET MARKETING EXECUTIVE: None. ANESTHESIA: General. INDICATIONS AND FINDINGS: The patient is a 34-year-old female, presented with complaints of abdominal pain, right lower quadrant, for 1 day. During the surgery, the patient was found acutely inflamed, very dilated appendix, which was about to rupture. There was fibrinous exudate around the appendix. There was some purulent fluid within the lower abdomen. There were adhesions in the lower midline involving omentum. TECHNIQUE: After adequate general endotracheal anesthesia, the patient's in supine position, the abdomen was prepped and draped in a sterile fashion with ChloraPrep solution. Skin in the umbilicus was infiltrated with 0.5% Marcaine. An incision was made in the umbilicus. Abdominal wall was elevated and Veress needle was introduced. Pneumoperitoneum was then created. A 10 mm trocar and cannula was then passed through the umbilical wound. Laparoscopic camera was introduced. Initial laparoscopy revealed acutely inflamed appendix. A 5 mm trocar and cannulas were placed in the right upper quadrant. A 12 mm trocar and cannula were placed in the right of the midline, just to the right where there were adhesions. These were placed under direct vision. The appendix was seen to be acutely inflamed. There was fibrinous exudate around the appendix and some purulent fluid around the appendix. The omentum was adherent over the appendix. This was dissected free. The cecum was elevated. A window was created between the base of the appendix and mesoappendix. The base of the appendix was divided with Endo-MAGGIE stapler. The mesoappendix was also divided with Endo-MAGGIE stapler. Hemostasis of each staple line was seen to be adequate; however, the appendiceal stump seen to be somewhat long. Cecum was grasped and stapler placed across the base of the appendix close to the cecum and this small residual appendix was removed also. Hemostasis of each staple line was seen to be adequate. Peritoneal cavity irrigated with large volume of saline, inspected for hemostasis, which was seen to be adequate. It was irrigated further with saline. All fluid aspirated and inspected for hemostasis, which was seen to be adequate. Instruments and cannulas were then removed. Pneumoperitoneum was evacuated. Wounds were then closed. Fascia in the umbilical and suprapubic wounds were closed with 0 Vicryl. Skin to all wounds closed with candida. Sterile dressings were applied to each wound. The patient tolerated the procedure well. Estimated blood loss was 20 mL. There were no complications. All counts were correct. The patient was taken to the recovery room in satisfactory condition. MD GAVINO Goyal/XIANG /[id number] cc: Migue Downing MD
--- NOTE | 2019-12-26 23:39 | Consultation ---
DATE OF CONSULTATION: 12/26/2019 HISTORY OF PRESENT ILLNESS: The patient is a 34-year-old female, presents with complaints of abdominal pain, started yesterday. She has associated nausea and vomiting and also low-grade fever. The patient's pain has persisted. She came to emergency room, where CT of the abdomen findings suggestive of acute appendicitis. The patient has not had similar symptoms in the past. PAST MEDICAL HISTORY: Otherwise unremarkable. She has had previous section, previous treatment for kidney stones. She has no chronic medical problems. HOME MEDICATIONS: Only ibuprofen or Aleve. ALLERGIES: SHE HAS NO KNOWN ALLERGIES. FAMILY HISTORY: Noncontributory. SOCIAL HISTORY: The patient smokes cigarettes, does not drink alcohol. REVIEW OF SYSTEMS: As stated above, otherwise was negative. She had no weight loss. PHYSICAL EXAMINATION: GENERAL: The patient is awake and alert, in no distress. VITAL SIGNS: Essentially normal. HEENT: Sclerae are not icteric. NECK: Supple. No masses. LUNGS: Equal breath sounds are clear bilaterally. CARDIAC: Regular rate and rhythm with no murmur. ABDOMEN: Tender in the lower abdomen, localized signs of peritonitis. There is no mass. There was no organomegaly. EXTREMITIES: Have no edema. Pulses are palpable. NEUROLOGIC: Intact. ASSESSMENT: A 34-year-old female with acute appendicitis. She will benefit from appendectomy. PLAN: To schedule for today. Procedure was explained to the patient including risks, benefits, and alternatives. She understands. She has had the opportunity to ask questions. She is aware of the possible need for open surgery. Thank you for asking me to see Ms. Roberts. MD GAVINO Goyal/MODL /[id number] cc: Migue Downing MD
[2019-12-27 00:01] VITALS: BP 99/66
[2019-12-27] MEDS: MORPHINE SULFATE INJ 4 MG/ML INJ 1ML IV PRN ×3 (01:42→07:31)
[2019-12-27] MEDS: PIPER-TAZ 3.375 GM 50 ML IV SCH ×3 (05:15→17:00)
[2019-12-27 05:23] VITALS: BP 107/69
[2019-12-27] MEDS: SODIUM CHLORIDE 0.9% 1000ML 1,000 ML IV SCH ×2 (05:40→16:15)
[2019-12-27 05:50] LABS: BASOPHILS # (AUTO) 0.1 (0.0-0.1); BASOPHILS % 0.3 % (0.0-1.0); EOSINOPHILS # (AUTO) 0.1 (0.0-0.4); EOSINOPHILS % 0.4 % (0.0-6.0); HEMATOCRIT 33.7 % (34.2-44.1); LYMPHOCYTES # (AUTO) 0.6 (1.0-3.2); LYMPHOCYTES % 2.9 % (18.0-39.1); MEAN CORPUSCULAR HEMOGLOBIN 29.2 pg (28-32); MEAN CORPUSCULAR HGB CONC 32.6 g/dL (31-35); MEAN CORPUSCULAR VOLUME 89.4 fL (81-99); MONOCYTES # (AUTO) 0.6 (0.2-0.8); MONOCYTES % 2.8 % (4.4-11.3); NEUTROPHILS # (AUTO) 20.3 (2.1-6.9); PLATELET COUNT 255 x10e3/uL (140-360); RED BLOOD COUNT 3.77 x10e6/uL (3.6-5.1); RED CELL DISTRIBUTION WIDTH 13.8 % (11.7-14.4)
[2019-12-27 06:17] LABS: ALANINE AMINOTRANSFERASE 13 IU/L (0-55); ALBUMIN 3.7 g/dL (3.5-5.0); ALBUMIN/GLOBULIN RATIO 1.3 (0.8-2.0); ALKALINE PHOSPHATASE 84 IU/L (40-150); ANION GAP 14.8 mmol/L (8-16); BLOOD UREA NITROGEN 8 mg/dL (7-26); BUN/CREATININE RATIO 10 (6-25); CALCIUM 8.5 mg/dL (8.4-10.2); CARBON DIOXIDE 18 mmol/L (22-29); CHLORIDE 109 mmol/L (98-107); EST GLOMERULAR FILTRATION RATE > 60 ML/MIN (60-); GLUCOSE 107 mg/dL (74-118); POTASSIUM 3.8 mmol/L (3.5-5.1); SODIUM 138 mmol/L (136-145)
--- NOTE | 2019-12-27 07:00 | NUR ---
RCD PT AT BED PT IS ALERT AND ORIENTED AND RESTING ON BED IV PATENT FAMILY BED LOW AND LOCKED CALL LIGHT IN REACH
[2019-12-27 08:45] VITALS: BP 143/75
--- NOTE | 2019-12-27 08:56 | Progress Note ---
DATE: SUBJECTIVE: 34-year-old female status post appendicitis, status post appendectomy by Dr. Maya. She is feeling well today, was able to walk, ambulate and had no pain. Pain is about 2/10 now after she has had no chest pains. No shortness of breath. Feeling better. MEDICATIONS: Include; morphine, Zofran, and Zosyn. OBJECTIVE: VITAL SIGNS: On examination, temperature is 98.3, pulse of 67, respirations of 18, blood pressure is 107/69, and pulse oximeter 98%. HEENT: Normocephalic and atraumatic. Pupils are reactive. CVS: S1 and S2 normal. Regular rate and rhythm. ABDOMEN: Soft and nontender. Bowel sounds are positive. Surgical sites and trocar sites are clean. LABORATORY STUDIES: White count today is 21,000, hemoglobin of 11, hematocrit of 33.7 with a left shift of 93. Chemistry show pending. Serology, coronavirus is not nondetected. Urine was clear. ASSESSMENT: Ms. Anali Roberts, status post appendectomy by Dr. Maya. PLAN: 1. Continue with IV antibiotic. 2. Leukocytosis from appendicitis. Continue with IV antibiotics. The patient is encouraged to do the incentive spirometer and walk around. Labs will be repeated for tomorrow. Plan will be to discharge if the patient is feeling better clinically. MD RAQUEL Marroquin/SHAHRAML /[id number]
[2019-12-27] MEDS: HYDROCODONE/APAP 5MG-325MG TAB PO PRN (12:03)
[2019-12-27 12:45] VITALS: BP 116/81
--- NOTE | 2019-12-27 16:00 | NUR ---
PAGED AND NOTIFIED DR PRECIADO THE PT REQUESTED TO GO HOME HE SAID HE DOING SURGERY AT [facility] AFTER THAT HE COMING TO SEE THE PT ,
[2019-12-27 16:45] VITALS: BP 110/82
[2019-12-27] MEDS ORDERED: TYLENOL # 31 EA PO (17:23)
--- NOTE | 2019-12-27 17:26 | NUR ---
AC TO DR PRECIADO PT CAN GO HOME PAGED AND NOTIFIED DR BUTLER GOT THE DISCHARGE ORDER
--- NOTE | 2019-12-27 17:50 | NUR ---
PATIENT WENT HOME IN SAFE CONDITION WITH HER
== END 2019-12-27 17:52 | disposition home or self-care (01) ==
LOC: ER 04:33 → ERHOLD 06:05 → MED/SURG 12:08
PROVIDERS: ADMIT Family Medicine; ATTEND Family Medicine
DX: K35.80 Unspecified acute appendicitis (principal); N73.6 Female pelvic peritoneal adhesions (postinfective); N12 Tubulo-interstitial nephritis, not specified as acute or chronic; Z87.442 Personal history of urinary calculi; Z11.59 Encounter for screening for other viral diseases
CPT/HCPCS: 36415 ×2; 44970; 74177; 80053 ×2; 81001; 81025; 83605; 85025 ×2; 87040; 88304; 99284; G0378 ×2; J0131; J0330; J1100; J1170; J1885; J2001; J2250; J2270 ×2; J2405 ×2; J2543 ×3; J2704; J2710; J3010; J7030 ×2; Q9967; U0002

== ENCOUNTER 2019-12-31 08:17 | Emergency (ER) | payer OTHER ==
[~2019-12-31] VITALS: Ht 165.1 cm; Wt 85.7 kg
[~2019-12-31 08:17] MED LIST: IBUPROFEN400 MG PO; NAPROXEN250 MG PO; TYLENOL # 31 EA PO
[2019-12-31] MEDS ORDERED: ACETAMINOPHEN 325 MG TAB PO STA (08:30)
--- NOTE | 2019-12-31 08:30 | Emergency Department Note ---
History of Present Illnes History of Present Illness Chief Complaint: General Medicine Complaints History of Present Illness This is a 34 year old female Chief Complaint Comment LAST NIGHT BEGAN HAVING BILATERAL SIDE/FLANK PAIN. POSITIVE NAUSEA, NO VOMITING. WHEN SHE URINATES SHE FEELS IT IN HER KIDNEYS S/P APPENDECTOMY 12/25 W/DR. GRADY. Historian: Patient Arrival Mode: Car Additional Treatment BRINE PLANT OPERATOR: NONE Second Hand Paper Machine Required: No Onset (how long ago): day(s) (2) Location: bilateral flank Quality: dull Radiation: Reports non-radiation Severity: severe Duration (how long): hour(s) (2) Timing of current episode: constant Progression: worsening Chronicity: new Context: Reports recent surgery; Denies recent illness Relieving factors: none Exacerbating factors: none Associated symptoms: Reports fever/chills, Reports nausea/vomiting Treatments prior to arrival: none Past Medical/Family History Physician Review I have reviewed the patient's past medical and family history. Any updates have been documented here. Past Medical History Recent Fever: No Clinical Suspicion of Infectio: No New/Unexplained Change in Ment: No Past Medical History: Kidney Stones Past Surgical History: Appendectomy, Tubal Ligation, Other Surgery: kidney surgery for stones, lithothripsy Other Last Tetanus: unknown Review of Systems Review of Systems Constitutional: Reports as per HPI EENTM: Reports no symptoms Cardiovascular: Reports no symptoms Respiratory: Reports no symptoms Gastrointestinal: Reports no symptoms Genitourinary: Reports dysuria Musculoskeletal: Reports as per HPI, Reports back pain (Bilateral flank) Integumentary: Reports no symptoms Neurological: Reports no symptoms Psychological: Reports no symptoms Endocrine: Reports no symptoms Hematological/Lymphatic: Reports no symptoms Physical Exam Related Data Allergies: Coded Allergies: No Known Allergies (Unverified , 12/31/19) Triage Vital Signs Vital Signs Date Time Temp Pulse Resp B/P (MAP) Pulse Ox O2 Delivery O2 Flow Rate FiO2 12/31/19 08:23 Vital signs reviewed: Yes Physical Exam CONSTITUTIONAL Constitutional: Present well-developed, Present well-nourished, Present distressed HENT HENT: Present normocephalic, Present atraumatic, Present oropharynx clear/moist, Present nose normal HENT L/R: Present left ext ear normal, Present right ext ear normal EYES Eyes: Reports PERRL, Reports conjunctivae normal NECK Neck: Present ROM normal PULMONARY Pulmonary: Present effort normal, Present breath sounds normal CARDIOVASCULAR Cardiovascular: Present regular rhythm, Present heart sounds normal, Present capillary refill normal, Present normal rate GASTROINTESTINAL Abdominal: Present soft, Present nontender (mild, Bilateral flank tenderness. 3 small post surgical incisions, well apearing with candida in place), Present bowel sounds normal GENITOURINARY Genitourinary: Present exam deferred SKIN Skin: Present warm, Present dry MUSCULOSKELETAL Musculoskeletal: Present ROM normal NEUROLOGICAL Neurological: Present alert, Present oriented x 3, Present no gross motor or sensory deficits PSYCHOLOGICAL Psychological: Present mood/affect normal, Present judgement normal Assessment & Plan Medical Decision Making MDM 34-year-old female with a past medical history of recent appendicitis status post surgery 5 days ago presents for bilateral flank pain. Patient states it hurts to P she's having fevers and chills. Examination shows bilateral flank tenderness. Initial differential significant for postsurgical complication versus intra-abdominal infection versus kidney stone versus pyelonephritis versus urinary tract infection. Workup shows UTI likely pyelonephritis. Given Rocephin in ED and UC sent. Will DC on Keflex. She will f/u w/ her PCP or return to ED for new/worsening symptoms. patient appropriate for DC. Reassessment Reassessment time: 10:48 Reassessment Well appearing, NAD Assessment & Plan Final Impression: (1) Pyelonephritis Depart Disposition: HOME, SELF-CARE Last Vital Signs Date Time Temp Pulse Resp B/P (MAP) Pulse Ox O2 Delivery O2 Flow Rate FiO2 12/31/19 08:23 Home Meds Reported Medications Acetaminophen/Codeine* (TYLENOL # 3*) 1 Ea Tab, MG PO Q4HR, #30 12/27/19 Ibuprofen (IBUPROFEN) 400 Mg Tablet, 800 MG PO Q6H PRN for MODERATE PAIN (4-6), TAB 12/26/19 Naproxen (NAPROXEN) 250 Mg Tablet, 250 MG PO Q4H PRN for Mild Pain (1-3) or Fever>100.8, TAB 12/26/19 CAMDEN MONROY MD Dec 31, 2019 08:30
[2019-12-31] MEDS ORDERED: ONDANSETRON HCL INJ 2MG/ML 2ML 2 MG/ML VIAL IV STA (08:34)
[2019-12-31] MEDS ORDERED: MORPHINE SULFATE INJ 4 MG/ML INJ 1ML IV PRN ×2 (08:45→11:15)
--- OUTSIDE RECORDS SUMMARY | 2019-12-31 08:59 | XMS REPORT | Continuity of Care Document ---
Author Author [facility] t Organization [facility] Address [address] [place] [address] Phone Unavailable Care Team Providers Care Quality Director Name Role Phone NO, PCP PCP Unavailable Johnny BUTLER Attphys Unavailable Johnny BUTLER Admphys Unavailable Payers Payer Name Policy Type Policy Number Effective Date Expiration Date S ource Problems Condition Name Condition Details Condition Category Status Onset Date Resolution Date Last Treatment Date Treating Clinician Comments Source Appendicitis Problem Active [facility] Allergies, Adverse Reactions, Alerts Allergy Name Allergy Type Status Severity Reaction(s) Onset Date Inacti ve Date Treating Clinician Comments Source No Known Allergies DA Active U 2019-01-05 00:00:00 [facility] No Known Allergies DA Active U 2013-08-28 00:00:00 [facility] Social History Social Habit Start Date Stop Date Quantity Comments Source Sex Assigned At 1985 00:00:00 1985 00[birth year]:00 Female [facility] Medications Ordered Medication Name Filled Medication Name Start Date Stop Da te Current Medication? Ordering Clinician Indication Dosage Frequency Signature (SIG) Comments Components Source Acetaminophen/Codeine Phosphate (Tylenol # 3*) 1 Ea TA B Acetaminophen/Codeine Phosphate (Tylenol # 3*) 1 Ea TAB Yes Ever y 4 Hours [facility] Ibuprofen Ibuprofen Yes 800 Ever y 6 Hours as needed for Moderate Pain (4-6) [facility] Naproxen Naproxen Yes 250 Every 4 Hours as needed for Mild Pain (1-3) Or Fever>100.8 [facility] Vital Signs Vital Name Observation Time Observation Value Comments Source Body Temperature 2019-12-27 16:45:00 98.2 [degF] [facility] Weight 2019-12-26 12:13:00 189 [lb_av] [facility] BMI (Body Mass Index) 2019-12-26 12:13:00 31.5 kg/m2 [facility] Procedures Procedure Date / Time Performed Performing Clinician Marilu e Computed tomography of abdomen and pelvis with contrast 00:00:00 [facility] Plan of Care Planned Activity Planned Date Details Comments Source Instructions Post Operative Pain [facility] Encounters Start Date/Time End Date/Time [facility] ID Source 2019-12-26 06:05:00 2019-12-27 17:52:00 Discharged Inpatient (obs) 1 REID BUTLER [facility] [id number] [facility] 2019-07-14 08:59:00 2019-07-14 10:07:00 Departed Emergency Room [facility] [id number] [facility] Results Test Description Test Time Test Comments Results Result Comments Source Blood leukocytes automated count (number/volume) 2019-12-27 05:10:00 Test Item White Blood Count (test code = 6690-2) 21.83 4.8-10.8 [facility] automated count (number/volume)2019-12-27 05:10:00* Test Item Value Reference Range Interpretation Comments Red Blood Count (test code = 789-8) 3.77 3.6-5.1 [facility] hemoglobin measurement (moles/volume)2019-12-27 05:10:00* Test Item Value Reference Range Interpretation Comments Hemoglobin (test code = 35414-0) 11.0 12.0-16.0 [facility] HospitalAutomated blood hematocrit (volume fraction)2019-12-27 05:10:00* Test Item Value Reference Range Interpretation Comments Hematocrit (test code = 4544-3) 33.7 34.2-44.1 [facility] HospitalAutomated erythrocyte mean corpuscular xcfqti3546-69-56 05:10:00* Test Item Value Reference Range Interpretation Comments Mean Corpuscular Volume (test code = 787-2) 89.4 81-99 [facility] HospitalAutomated erythrocyte mean corpuscular hemoglobin (mass per erythrocyte)2019-12-27 05:10:00* Test Item Value Reference Range Interpretation Comments Mean Corpuscular Hemoglobin (test code = 785-6) 29.2 28-32 [facility] HospitalAutomated erythrocyte mean corpuscular hemoglobin concentration measurement (mass/volume)2019-12-27 05:10:00* Test Item Value Reference Range Interpretation Comments Mean Corpuscular Hemoglobin Concent (test code = 786-4) 32.6 31-35 [facility] HospitalRDW EpfBy-Cmv7320-60-05 05:10:00* Test Item Value Reference Range Interpretation Comments Red Cell Distribution Width (test code = 32518-0) 13.8 11.7 -14.4 [facility] HospitalAutomated blood platelet count (count/volume)2019-12-27 05:10:00* Test Item Value Reference Range Interpretation Comments Platelet Count (test code = 777-3) 255 140-360 [facility] HospitalAutashe memorial hospitaled blood segmented neutrophil count as percentage of total qjxxbaahhb8835-35-02 05:10:00* Test Item Value Reference Range Interpretation Comments Neutrophils (%) (Auto) (test code = 81486-9) 93.0 38.7-80.0 [facility] HospitalAutomated blood lymphocyte count as percentage ot total nvxrusyjfw8643-76-96 05:10:00* Test Item Value Reference Range Interpretation Comments Lymphocytes (%) (Auto) (test code = 736-9) 2.9 18.0-39.1 [facility] HospitalAutomated blood monocyte count as percentage of total anhtdqqypd1612-20-08 05:10:00* Test Item Value Reference Range Interpretation Comments Monocytes (%) (Auto) (test code = 5905-5) 2.8 4.4-11.3 [facility] HospitalAutomated blood eosinophil count as percentage of total txostuatii6283-90-97 05:10:00* Test Item Value Reference Range Interpretation Comments Eosinophils (%) (Auto) (test code = 713-8) 0.4 0.0-6.0 [facility] HospitalAutomated blood basophil count as percentage of total egjzhewlwp5409-90-12 05:10:00* Test Item Value Reference Range Interpretation Comments Basophils (%) (Auto) (test code = 706-2) 0.3 0.0-1.0 [facility] HospitalFluoroscopic procedure less than one hour xwdnzexr2505-30-90 05:10:00* Test Item Value Reference Range Interpretation Comments IM GRANULOCYTES % (test code = IM GRANULOCYTES %) 0.6 0.0- 1.0 [facility] HospitalAutomated blood neutrophil count 2019-12-27 05:10:00* Test Item Value Reference Range Interpretation Comments Neutrophils # (Auto) (test code = 751-8) 20.3 2.1-6.9 [facility] HospitalBlood lymphocytes count (number/volume) 2019-12-27 05:10:00* Test Item Value Reference Range Interpretation Comments Lymphocytes # (Auto) (test code = 20487-0) 0.6 1.0-3.2 [facility] HospitalBlood monocytes automated count (number/volume)2019-12-27 05:10:00* Test Item Value Reference Range Interpretation Comments Monocytes # (Auto) (test code = 742-7) 0.6 0.2-0.8 [facility] HospitalAutomated blood eosinophil count 2019-12-27 05:10:00* Test Item Value Reference Range Interpretation Comments Eosinophils # (Auto) (test code = 711-2) 0.1 0.0-0.4 [facility] HospitalAutomated blood basophil count (count/volume)2019-12-27 05:10:00* Test Item Value Reference Range Interpretation Comments Basophils # (Auto) (test code = 704-7) 0.1 0.0-0.1 [facility] HospitalFluoroscopic procedure less than one hour lgvtdyxv2884-77-71 05:10:00* Test Item Value Reference Range Interpretation Comments Absolute Immature Granulocyte (auto (rosie t code = Absolute Immature Granulocyte (auto) 0.14 0-0.1 [facility] sodium measurement (moles/volume)2019-12-27 05:10:00* Test Item Value Reference Range Interpretation Comments Sodium Level (test code = 2951-2) 138 136-145 [facility]ererum or plasma potassium measurement (moles/volume)2019-12-27 05:10:00* Test Item Value Reference Range Interpretation Comments Potassium Level (test code = 2823-3) 3.8 3.5-5.1 [facility] or plasma chloride measurement (moles/volume)2019-12-27 05:10:00* Test Item Value Reference Range Interpretation Comments Chloride Level (test code = 2075-0) 109 98-107 [facility]ererum or plasma carbon dioxide, total measurement (moles/volume)2019-12-27 05:10:00* Test Item Value Reference Range Interpretation Comments Carbon Dioxide Level (test code = 2028-9) 18 22-29 [facility] or plasma anion kng0149-14-67 05:10:00* Test Item Value Reference Range Interpretation Comments Anion Gap (test code = 01704-5) 14.8 8-16 [facility] or plasma urea nitrogen measurement (mass/volume)2019-12-27 05:10:00* Test Item Value Reference Range Interpretation Comments Blood Urea Nitrogen (test code = 3094-0) 8 7-26 [facility] or plasma creatinine measurement (mass/volume)2019-12-27 05:10:00* Test Item Value Reference Range Interpretation Comments Creatinine (test code = 2160-0) 0.80 0.57-1.11 [facility] or plasma urea nitrogen/creatinine mass ivhka6113-00-43 05:10:00* Test Item Value Reference Range Interpretation Comments BUN/Creatinine Ratio (test code = 3097-3) 10 6-25 [facility] HospitalEstimated glomerular filtration rate (GFR) chprldbwagsqk0506-99-88 05:10:00* Test Item Value Reference Range Interpretation Comments Estimat Glomerular Filtration Rate (test code = 911934812) > 60 >60 Ranges were taken from the National Kidney Disease Education Program and the [facility] Foundation literature.Reference ranges:60 or greater: Mbfndi99-83 ( for 3 consecutive months): Chronic kidney disease 15 or less: Kidney failureStarr County Memorial HospitalGlucose ykmdmjvdetw0683-61-21 05:10:00* Test Item Value Reference Range Interpretation Comments Glucose Level (test code = SPP8634) 107 74-118 [facility]ere[facility] or plasma calcium measurement (mass/volume)2019-12-27 05:10:00* Test Item Value Reference Range Interpretation Comments Calcium Level (test code = 31315-6) 8.5 8.4-10.2 [facility]ere[facility] or plasma total bilirubin measurement (mass/volume)2019-12-27 05:10:00* Test Item Value Reference Range Interpretation Comments Total Bilirubin (test code = 1975-2) 1.1 0.2-1.2 [facility] HospitalFluoroscopic procedure less than one hour imgmocwu8963-48-68 05:10:00* Test Item Value Reference Range Interpretation Comments Aspartate Amino Transf (AST/SGOT) (test code = Aspartate Amino Transf (AST/SGOT)) 15 5-34 [facility]ererum or plasma alanine aminotransferase measurement (enzymatic activity/volume)2019-12-27 05:10:00* Test Item Value Reference Range Interpretation Comments Alanine Aminotransferase (ALT/SGPT) (test code = 1742-6) 13 0-55 [facility]ererum or plasma protein measurement (mass/volume)2019-12-27 05:10:00* Test Item Value Reference Range Interpretation Comments Total Protein (test code = 2885-2) 6.5 6.5-8.1 [facility]ererum or plasma albumin measurement (mass/volume)2019-12-27 05:10:00* Test Item Value Reference Range Interpretation Comments Albumin (test code = 1751-7) 3.7 3.5-5.0 [facility] HospitalPlasma globulin measurement (mass/volume) 2019-12-27 05:10:00* Test Item Value Reference Range Interpretation Comments Globulin (test code = 38471-9) 2.8 2.3-3.5 [facility]ererum or plasma albumin/globulin mass ahvsn4410-73-72 05:10:00* Test Item Value Reference Range Interpretation Comments Albumin/Globulin Ratio (test code = 1759-0) 1.3 0.8-2.0 [facility]ererum or plasma alkaline phosphatase measurement (enzymatic activity/volume)2019-12-27 05:10:00* Test Item Value Reference Range Interpretation Comments Alkaline Phosphatase (test code = 6768-6) 84 40-150 [facility] HospitalCT ABDOMEN/PELVIS D8683-60-50 06:02:00 [place] [address] Patient Name: BECCA QUESADA AE MR #: [id number] : 987 Age/Sex: 34/F Req #: [id number] Adm Physician: REID BUTLER MD Ordered by: JUAN STEPHEN DO Report #: [id number] Location: [facility] Room/Bed: [place] [address] Procedure: CT/CT AB DOMEN/PELVIS W Exam Date: 12/26/19 Exam Time: 514 REPORT STATUS: Signed EXAM: CT Ab domen and Pelvis WITH contrast INDICATION: RLQ pain [id number] COMPARISON: None. TECHNIQUE: Abdomen and pelvis were scanned utilizing a multidetector helical scanner from the lung base to the pubic symphysis aft er administration of IV contrast. Coronal and sagittal reformations were obtai loc. Dose modulation, iterative reconstruction, and/or weight based adjustment of the mA/kV was utilized to reduce the radiation dose to as low as reasonabl y achievable. Routine protocol was performed. Scan was performed when during p ortal venous phase. IV CONTRAST: 100 mL of Isovue-370 ORAL C ONTRAST: None COMPLICATIONS: None RADIATION DOSE: T otal DLP: 598.67 mGy*cm Estimated effective dose: (DLP x 0.015 x size fac tor) mSv CTDIvol has been reviewed. It is below the limits set by the Rad iation Protocol Committee (RPC). FINDINGS: LINES and TUBES: None. LOWER THORAX: Unremarkable HEPATOBILIARY: 1.9 cm hypodensity adjacent t o the falciform ligament, could represent fat deposition versus a cyst. N o biliary ductal dilation. GALLBLADDER: No radio-opaque stones or sludge. No wall thickening. SPLEEN: No splenomegaly. PANCREAS: No focal mass es or ductal dilatation. ADRENALS: No adrenal nodules KIDNEYS/UR ETERS: Kidneys enhance symmetrically. Multifocal bilateral cortical scarring, left greater right. Focal area of right inferior pole cortical hypoenhancement with adjacent mild fat stranding (series 2, image 41). No hydronephrosis. No renal mass. No stones. GI TRACT: No abnormal distention, wall thickening, or evidence of bowel obstruction. Distended appendix up to 1.5 cm with m ild surrounding fat stranding. PELVIC ORGANS/BLADDER: Bladder is under di stended, demonstrating wall thickening. Vaginal tampon in place. LYMPH NO CAN: No lymphadenopathy. VESSELS: Unremarkable. PERITONEUM / RETROPERI TONEUM: No free air. Small amount of complex pelvic free fluid. BONES: Un remarkable. SOFT TISSUES: Unremarkable. IMPRESSION: 1. Acute appendicitis. No evidence of perforation or abscess formation. 2. Smal l focal area of right renal cortical hypoenhancement, could represent mild samir lonephritis in the appropriate clinical context. 3. Significant multifocal l eft renal cortical scarring Dr. Dyer was notified at 6:10 AM, on 12/26/2019. Signed by: Dr. Cornelio Dye MD on 12/26/2019 6:12 AM Dictated By: Benita DYE MD 1 Tr anscribed By: JAG on 12/26/19611 COPY TO: JUAN STEPHEN DO Fluoroscopic procedure less than one hour rxddanao5035-81-80 05:41:00* Test Item Value Reference Range Interpretation Comments Coronavirus (PCR) (test code = Coronavirus (PCR)) NOT DETECTED NOTD ETECTED [employer]ima SARS-CoV-2 assay is a nucleic amplification test intended for the qualitative detection of RNA from SARS-CoV-2 from nasopharyngeal (SAW MAKER) specimens . It is used under Emergency Use Authorization (EUA) by FDA.A positive result is indicative of the presence of SARS-CoV-2 RNA. Clinical correlation with patient history and other diagnostic information is necessary to determine patient infe ction status.A negative (Not Detected) result does not preclude SARS-CoV-2 infec tion. Clinical Correlation with patient history and other diagnostic information should be used in patient management decisions.Invalid: Unable to generate a va lid result on this specimen. Please submit a new specimen for reprat testing oc clinically indicated.Tesing performed by:[facility] [address] [place] [address] [id number], Franco Sloan MD, PhD [facility] HospitalFluoroscopic procedure less than one hour pnhgzngy7891-17-05 05:00:00* Test Item Value Reference Range Interpretation Comments Lactic Acid Level (test code = Lactic Acid Level) 0.9 0.5- 2.0 [facility] HospitalBlood pofsoxh1460-75-88 05:00:00* Test Item Value Reference Range Interpretation Comments Blood Culture (test code = 04609952) NO GROWTH AFTER 24 HOURS [facility] HospitalUrine color jzadkwfvxufoe4914-21-65 04:35:00* Test Item Value Reference Range Interpretation Comments Urine Color (test code = 5778-6) YELLOW YELLOW [facility] HospitalUrine cozjfzc6658-92-80 04:35:00* Test Item Value Reference Range Interpretation Comments Urine Clarity (test code = 55525-1) SL CLOUDY CLEAR [facility] Centerpecific gravity of Urine by Test strip 2019-12-26 04:35:00* Test Item Value Reference Range Interpretation Comments Urine Specific Terreton (test code = 5811-5) 1.025 1.010-1.02 5 [facility] HospitalUrine pH measurement by automated test stokv7163-27-53 04:35:00* Test Item Value Reference Range Interpretation Comments Urine pH (test code = 85059-5) 7 5-7 [facility] HospitalUrine leukocyte esterase detection by kacajlqq0167-09-87 04:35:00* Test Item Value Reference Range Interpretation Comments Urine Leukocyte Esterase (test code = 5799-2) SMALL NEGATIVE [facility] HospitalUrine nitrite oroodgujo6675-65-48 04:35:00* Test Item Value Reference Range Interpretation Comments Urine Nitrite (test code = 86943-8) POSITIVE NEGATIVE [facility] HospitalUrine protein measurement by test strip (mass/volume)2019-12-26 04:35:00* Test Item Value Reference Range Interpretation Comments Urine Protein (test code = 5804-0) TRACE NEGATIVE [facility] HospitalUrine glucose fryrfvjxl8097-96-59 04:35:00* Test Item Value Reference Range Interpretation Comments Urine Glucose (UA) (test code = 2349-9) NEGATIVE NEGATIVE [facility] HospitalUrine ketones detection by automated test mtusk6387-53-90 04:35:00* Test Item Value Reference Range Interpretation Comments Urine Ketones (test code = 42358-3) NEGATIVE NEGATIVE [facility] HospitalUrine urobilinogen measurement by test strip (mass/volume)2019-12-26 04:35:00* Test Item Value Reference Range Interpretation Comments Urine Urobilinogen (test code = 06971-1) 0.2 0.2-1 [facility] HospitalUrine total bilirubin measurement (mass/volume)2019-12-26 04:35:00* Test Item Value Reference Range Interpretation Comments Urine Bilirubin (test code = 1978-6) NEGATIVE NEGATIVE [facility] HospitalUrine erythrocytes mswlbdmvi3071-83-56 04:35:00* Test Item Value Reference Range Interpretation Comments Urine Blood (test code = 28272-1) LARGE NEGATIVE [facility] HospitalAutomated urine sediment leukocyte count by microscopy (number/high power field)2019-12-26 04:35:00* Test Item Value Reference Range Interpretation Comments Urine WBC (test code = 5821-4) 11-20 0-5 [facility] HospitalErythrocytes detection in urine sediment by light aqtxlxpkic8097-98-37 04:35:00* Test Item Value Reference Range Interpretation Comments Urine RBC (test code = 77655-8) 11-20 0-5 [facility] HospitalBacteria detection in urine sediment by light ilnvkzgtrw3843-30-29 04:35:00* Test Item Value Reference Range Interpretation Comments Urine Bacteria (test code = 77556-2) MODERATE NONE [facility] HospitalEpithelial cells detection in urine sediment by light mgtdtnmcrf0933-21-72 04:35:00* Test Item Value Reference Range Interpretation Comments Urine Epithelial Cells (test code = 01293-3) FEW NONE [facility] HospitalAmorphous sediment detection in urine sediment by light txmcqqciln8894-67-15 04:35:00* Test Item Value Reference Range Interpretation Comments Urine Amorphous Sediment (test code = 8246-1) MODERATE FEW [facility] HospitalUrine human chorionic gonadotropin (hCG) uatzoestr2073-03-37 04:35:00* Test Item Value Reference Range Interpretation Comments Urine Test (test code = 2106-3) NEGATIVE NEGATIVE [facility] HospitalInfluenza Virus Types A,B Antigen 2019-07-14 09:54:00* Test Item Value Reference Range Interpretation Comments Influenza Virus Types A,B Antigen (test code = 55849-9) NEGATIVE NEGATIVE [facility] HospitalGroup A Streptococcus Ovoilv5677-88-61 09:46:00* Test Item Value Reference Range Interpretation Comments Group A Streptococcus Screen (test code = 10168-6) NEGATIVE NEG ATIVE [facility] HospitalInfluenza virus A and B antigen identification by rilxvvcwmovfubvodn9305-68-26 09:14:00* Test Item Value Reference Range Interpretation Comments Influenza Virus Types A,B Antigen (test code = 30806-8) NEGATIVE NEGATIVE [facility] Centertreptococcus pyogenes antigen detection in waidjf0183-35-06 09:14:00* Test Item Value Reference Range Interpretation Comments Group A Streptococcus Screen (test code = 85381-8) NEGATIVE NEG ATIVE [facility]- US ABDOMEN [id number] 09:55:00 [facility] 1985 Age/S: 33 / F [address] Unit #: [id number] Loc: [place] [address] Phys: Lee Vu NP Acct: [id number] Di s Date: Status: REG ER PHONE #: Exam Date: 01/05/2019927 FAX #: Reason: RUQ AND R FLANK PAIN EXAMS: CPT CODE: [id number] [place] [address] REASON FOR EXAM: RUQ AND R FLANK PAIN EXAM ORDER DATE: 01/05/2019 8:52 AM Attending Timmy: Roya Vu NP PROCEDURE: - [facility] Technique: Grayscale and color Doppler images of [...] 1 Signed Report (CONTINUED) Name: [facility] 1985 Age/S: 33 / F [address] Unit #: [id number] Loc: [place] [address] Phys: Roya Vu NP Acct: [id number] Dis Date: Stat us: REG ER PHONE #: [phone] Exam Date: 01/05/2019927 FAX #: [phone] Reason: RUQ AND R FLANK PAIN EXAMS: CPT CODE: [id number] US ABDOMEN [facility] [address] <Continued> cysts/masses: none hydronephrosis: none Ascites/pleural effusions: [...] Technologist: ALTHEA ALCOCER Trnscb Date/Time: 01/05/2019 (0955) t.[id number] Orig Print D/T: S: 01/05/2019 (0958) Probe: PAGE 2 Signed Report URINALYSIS COMPLETE 2019-01-05 08:47:00* Test Item Value Reference Range Interpretation [...] #/LPF NONE Urine Source? Clean CatchBASIC METABOLIC [id number] 08:47:00* Test Item Value Reference Range Interpretation [...] CA) 9.2 mg/dL 8.5-10.1 N HEPATIC FUNCTION BTZFJ8709-78-03 08:47:00* Test Item Value Reference Range Interpretation [...] reference range due to change in reagent. [id number] 08:47:00* Test Item Value Reference Range Interpretation Comments LIPASE (test code = LIP) 96 U/L 73.0-393.0 N HCG SERUM [id number] 08:47:00* Test Item Value Reference Range Interpretation Comments HCG SERUM QUAL (test code = HCGQL) NEGATIVE NEGATIVE This HCGQL test is NOT applicable for MALE patients.Check with nurse about probable order error.If Tumor Marker Test needed, nurse should order test "HCGTU"(Test #550.88852) BASIC METABOLIC [id number] 08:38:00* Test Item Value Reference Range Interpretation [...] code = CA) mg/dL 8.5-10.1 HEPATIC FUNCTION [id number] 08:38:00* Test Item Value Reference Range Interpretation [...] TOTAL (test code = ALKP) IUnit/L 45-117 [id number] 08:38:00* Test Item Value Reference Range Interpretation Comments LIPASE (test code = LIP) U/L 73.0-393.0 HCG SERUM [id number] 08:38:00* Test Item Value Reference Range Interpretation Comments HCG SERUM QUAL (test code = HCGQL) NEGATIVE NEGATIVE This HCGQL test is NOT applicable for MALE patients.Check with nurse about probable order error.If Tumor Marker Test needed, nurse should order test "HCGTU"(Test #550.75810) BASIC METABOLIC [id number] 08:37:00* Test Item Value Reference Range Interpretation [...] code = CA) mg/dL 8.5-10.1 HEPATIC FUNCTION [id number] 08:37:00* Test Item Value Reference Range Interpretation [...] TOTAL (test code = ALKP) IUnit/L 45-117 [id number] 08:37:00* Test Item Value Reference Range Interpretation Comments LIPASE (test code = LIP) U/L 73.0-393.0 HCG SERUM [id number] 08:37:00* Test Item Value Reference Range Interpretation Comments HCG SERUM QUAL (test code = HCGQL) NEGATIVE NEGATIVE This HCGQL test is NOT applicable for MALE patients.Check with nurse about probable order error.If Tumor Marker Test needed, nurse should order test "HCGTU"(Test #550.51646) CBC W/O [id number] 08:30:00* Test Item Value Reference Range Interpretation [...] MPV) 11.6 fL 6.7-11.0 H CBC W/O [id number] 08:24:00* Test Item Value Reference Range Interpretation [...]
[2019-12-31 09:28] LABS: BASOPHILS % 0.2 % (0.0-1.0); EOSINOPHILS # (AUTO) 0.2 (0.0-0.4); EOSINOPHILS % 1.5 % (0.0-6.0); HEMATOCRIT 36.7 % (34.2-44.1); HEMOGLOBIN 11.9 g/dL (12.0-16.0); LYMPHOCYTES % 16.4 % (18.0-39.1); MEAN CORPUSCULAR HGB CONC 32.4 g/dL (31-35); MEAN CORPUSCULAR VOLUME 86.4 fL (81-99); MONOCYTES # (AUTO) 0.7 (0.2-0.8); MONOCYTES % 6.1 % (4.4-11.3); NEUTROPHILS # (AUTO) 9.1 (2.1-6.9); NEUTROPHILS % 75.3 % (38.7-80.0); PLATELET COUNT 443 x10e3/uL (140-360); RED BLOOD COUNT 4.25 x10e6/uL (3.6-5.1); RED CELL DISTRIBUTION WIDTH 14.6 % (11.7-14.4)
[2019-12-31 09:49] LABS: ALANINE AMINOTRANSFERASE 20 IU/L (0-55); ALBUMIN 3.9 g/dL (3.5-5.0); ALBUMIN/GLOBULIN RATIO 1.1 (0.8-2.0); ALKALINE PHOSPHATASE 118 IU/L (40-150); ANION GAP 13.6 mmol/L (8-16); BLOOD UREA NITROGEN 10 mg/dL (7-26); BUN/CREATININE RATIO 13 (6-25); CALCIUM 9.6 mg/dL (8.4-10.2); CARBON DIOXIDE 25 mmol/L (22-29); CHLORIDE 106 mmol/L (98-107); CREATININE, SERUM 0.78 mg/dL (0.57-1.11); EST GLOMERULAR FILTRATION RATE > 60 ML/MIN (60-); GLUCOSE 107 mg/dL (74-118); POTASSIUM 3.6 mmol/L (3.5-5.1); SODIUM 141 mmol/L (136-145)
[2019-12-31 10:32] LABS: CLARITY,URINE CLOUDY (CLEAR); COLOR,URINE YELLOW (YELLOW)
[2019-12-31 10:33] LABS: BILIRUBIN,URINE NEGATIVE (NEGATIVE); KETONES,URINE NEGATIVE (NEGATIVE); LEUKOCYTE ESTERASE ,URINE MODERATE (NEGATIVE); NITRITE,URINE POSITIVE (NEGATIVE); PROTEIN,URINE DIPSTICK TRACE (NEGATIVE); URINE UROBILINOGEN 0.2 mg/dL (0.2 - 1)
[2019-12-31] MEDS ORDERED: IOPAMIDOL 370 MG/ML 200 ML INFUS..BTL INJ ONE (10:37)
[2019-12-31] MEDS ORDERED: SODIUM CHLORIDE 0.9% 50ML 50 ML ONE ×2 (10:37→11:21)
--- NOTE | 2019-12-31 10:43 | NUR ---
DR. MONROY AT BEDSIDE UPDATING PATIENT ON RESULTS
[2019-12-31 10:44] LABS: AMORPHOUS SEDIMENT,URINE MODERATE (FEW); BACTERIA,URINE MANY /HPF; EPITHELIAL CELLS,URINE FEW /LPF; RBC,URINE 0-5 /HPF (0-5); WBC,URINE (MAN) >50 /HPF (0-5)
[2019-12-31] MEDS ORDERED: KEFLEX500 MG PO (10:52)
[2019-12-31] MEDS ORDERED: SODIUM CHLORIDE 0.9% 1000ML 1,000 ML IV SCH (11:00)
[2019-12-31] MEDS ORDERED: CEFTRIAXONE SOD 1 GM VIAL IM ONE (11:00)
--- NOTE | 2019-12-31 11:46 | Diagnostic Imaging Report ---
CT of the abdomen and pelvis, with contrast. History: Abdominal pain, recent appendectomy. Comparison: CT abdomen/pelvis with contrast from 12/26/2019. Technique: Multidetector CT scanning of the abdomen and pelvis was performed from the level of the lung bases to the inferior pubic rami after intravenous administration of contrast. Coronal and sagittal multiplanar reformations were obtained. RADIATION DOSE: Total DLP: 665.79 mGy*cm Dose modulation, iterative reconstruction, and/or weight based adjustment of the mA/kV was utilized to reduce the radiation dose to as low as reasonably achievable. FINDINGS: There is mild bibasilar atelectasis and trace right pleural fluid present. The imaged portion of the heart demonstrates no significant abnormalities. The liver is normal in size and attenuation. Again identified is a stable 1.9 cm hypodensity identified within the liver adjacent to the falciform ligament which is not definitively characterized on this single phase examination with stable from the recent prior examination. No new focal hepatic abnormality is identified. The gallbladder is unremarkable. There is no biliary ductal dilatation. The stomach, spleen, pancreas, and bilateral adrenal glands are unremarkable. The kidneys are normal in location and enhance symmetrically. There is stable minimal right perinephric stranding. Stable multifocal cortical scarring noted of the left kidney. There is no evidence for nephrolithiasis or hydronephrosis. No ureteral stone or dilatation is appreciated. The partially distended urinary bladder demonstrates no significant abnormalities. The uterus and adnexa are grossly unremarkable. In this patient with history of recent appendectomy, there has been interval development of a fluid collection within the deep pelvis anterior to the rectosigmoid colon measuring approximately 2.4 x 5.3 x 3.5 cm which demonstrates peripheral enhancement. Suture material and small amount of stranding noted within the right lower quadrant compatible with history of recent appendectomy. Skin candida noted within the anterior right lower quadrant abdominal wall. Please note evaluation of the bowel is limited at these enteric contrast material. The visualized loops of small and large demonstrate no evidence of obstruction or inflammation. There is no intraperitoneal free air. No abnormally enlarged lymph nodes are identified within the abdomen or pelvis. The osseous structures. No evidence for acute fracture or destructive process. The extra peritoneal soft tissues are unremarkable. IMPRESSION: Postsurgical changes from recent appendectomy with development of a fluid collection within the deep pelvis measuring 2.4 x 5.3 x 3.5 cm which may represent an abscess. Additional stable findings as above. Signed by: Dr. Wilber Tillman MD on 12/31/2019 11:42 AM
[2019-12-31] MEDS ORDERED: ZOFRAN4 MG PO (12:04)
== END 2019-12-31 13:04 | disposition home or self-care (01) ==
LOC: ER 08:23
DX: N12 Tubulo-interstitial nephritis, not specified as acute or chronic (principal); R10.30 Lower abdominal pain, unspecified; M54.5 Low back pain; R11.0 Nausea
CPT/HCPCS: 36415; 74177; 80053; 81001; 81025; 83605; 85025; 87040; 87086; 87186; 99284; J0696; J2270; J2405; J7030; Q9967